=== PATIENT | male | born 1975 | race Hispanic/Latino ===

== ENCOUNTER 2018-10-16 05:16 | Emergency (ER) | payer OTHER ==
[2018-10-16] MEDS ORDERED: DEXAMETHASONE 10 MG/ML VIAL ONE (05:45)
[2018-10-16] MEDS ORDERED: KETOROLAC 30 MG/ML INJ ONE (05:46)
--- NOTE | 2018-10-16 06:06 | ER ---
Nurse's Notes [facility] Name: Pascual Pearson Age: 43 yrs Sex: Male : 1975 Arrival Date: 10/16/2018 Time: 05:19 Bed 18 Private MD: Serina Su H Diagnosis: Low back pain Presentation: 10/16 05:26 Presenting complaint: Patient states: R low back pain since yesterday afternoon which aa1 has progressively gotten worse throughout the next. C/O burning pain 06/12. Transition of care: patient was not received from another setting of care. Onset of symptoms was October 15, 2018. Risk Assessment: Do you want to hurt yourself or someone else? Patient reports no desire to harm self or others. Initial Sepsis Screen: Does the patient meet any 2 criteria? No. Patient's initial sepsis screen is negative. Does the patient have a suspected source of infection? No. Patient's initial sepsis screen is negative. Care prior to arrival: None. 05:26 Method Of Arrival: Ambulatory aa1 05:26 Acuity: EVERT 4 aa1 Triage Assessment: 05:29 General: Appears in no apparent distress. comfortable, Behavior is calm, cooperative, aa1 appropriate for age. Historical: - Allergies: 05:29 No Known Allergies; aa1 - Home Meds: 05:29 metformin 1,000 mg Oral tab 1 tab 2 times per day [Active]; Mobic Oral [Active]; aa1 Glyburide Oral [Active]; Lisinopril Oral [Active]; Metoprolol Tartrate Oral [Active]; Lantus Sub-Q [Active]; - PMHx: 05:29 chronic back pain; Hypertension; Diabetes - IDDM; aa1 - PSHx: 05:29 None; aa1 - Immunization history:: Flu vaccine is up to date. - Social history:: Smoking status: Patient uses tobacco products, smokes one-half pack cigarettes per day. - Ebola Screening: : No symptoms or risks identified at this time. - Family history:: not pertinent. - Hospitalizations: : No recent hospitalization is reported. Screenin:30 Abuse screen: Denies threats or abuse. Nutritional screening: No deficits noted. jb4 Tuberculosis screening: No symptoms or risk factors identified. Fall Risk None identified. Assessment: 05:30 General: Appears in no apparent distress. uncomfortable, Behavior is calm, cooperative, jb4 appropriate for age. Pain: Complains of pain in right low back Pain does not radiate. Pain currently is 9 out of 10 on a pain scale. Quality of pain is described as burning, Pain began Midnight tonight Is continuous, Alleviated by rest, Aggravated by repositioning. Neuro: Level of Consciousness is awake, alert, obeys commands, Oriented to person, place, time, situation. Cardiovascular: Patient's skin is warm and dry. Respiratory: Airway is patent Respiratory effort is even, unlabored, Respiratory pattern is regular, symmetrical. GI: No signs and/or symptoms were reported involving the gastrointestinal system. : No signs and/or symptoms were reported regarding the genitourinary system. EENT: No signs and/or symptoms were reported regarding the EENT system. Derm: Skin is intact, Skin is pink, warm \T\ dry. Musculoskeletal: Circulation, motion, and sensation intact. 06:02 Reassessment: No changes from previously documented assessment. Patient and/or family jb4 updated on plan of care and expected duration. Pain level reassessed. Patient is alert, oriented x 3, equal unlabored respirations, skin warm/dry/pink. Pt reports a decrease in pain from a 9/10 to 4/10 Patient states feeling better. Vital Signs: 05:29 BP 146 / 72; Pulse 84; Resp 18; Temp 99.2; Pulse Ox 96% on R/A; Weight 117.93 kg; aa1 Height 5 ft. 5 in. (165.10 cm); Pain 9/10; 05:29 Body Mass Index 43.27 (117.93 kg, 165.10 cm) aa1 ED Course: 05:19 Patient arrived in ED. es 05:19 Serina Su DO is Private Physician. es 05:23 Bronson Magdaleno MD is Attending Physician. rn 05:27 Triage completed. aa1 05:29 Arm band placed on right wrist. aa1 05:30 Patient has correct armband on for positive identification. Call light in reach. Side jb4 rails up X 1. Pulse ox on. NIBP on. 05:31 Jc Vasquez, KAMERON is Primary Nurse. jb4 06:05 Serina Su DO is Referral Physician. rn 06:12 No provider procedures requiring assistance completed. Patient did not have IV access jb4 during this emergency room visit. Administered Medications: 05:46 Drug: TORadol 30 mg Route: IM; Site: right gluteus; jb4 06:03 Follow up: Response: No adverse reaction; Pain is decreased jb4 05:46 Drug: Decadron 10 mg Route: IM; Site: right gluteus; jb4 06:03 Follow up: Response: No adverse reaction; Pain is decreased jb4 Outcome: 06:05 Discharge ordered by . rn 06:12 Discharged to home ambulatory. jb4 06:12 Condition: stable 06:12 Discharge instructions given to patient, Instructed on discharge instructions, follow up and referral plans. medication usage, Demonstrated understanding of instructions, follow-up care, medications, Prescriptions given X 2. 06:13 Patient left the ED. jb4 Signatures: Jojo Gaston RN RN aa1 Guillermina Marcano Roman, MD MD rn Bryson, James, RN RN jb4
--- NOTE | 2018-10-16 06:06 | EDPHYS ---
Physician Documentation [facility] Name: Pascual Pearson Age: 43 yrs Sex: Male : 1975 Arrival Date: 10/16/2018 Time: 05:19 Bed 18 Private MD: Serina Su H ED Physician Bronson Magdaleno HPI: 10/16 05:57 This 43 yrs old Male presents to ER via Ambulatory with complaints of Low Back rn Pain, with burning sensation. 05:57 The patient presents with pain that is acute. The symptoms are located in the low back. rn The pain does not radiate. Onset: The symptoms/episode began/occurred yesterday. Modifying factors: The patient symptoms are alleviated by remaining still, the patient symptoms are aggravated by any movement, bending. Severity of symptoms: At their worst the symptoms were mild, in the emergency department the symptoms are unchanged. The patient has experienced similar episodes in the past. Reports right lower back pain, began yesterday, worse with movement, noticed it shortly after lifting Chihuahua and laid down, no trauma, no radiation to legs, has had pinched nerves in back before, no abd or chest pain. No fever, no urinary symptoms. No vomiting/diarrhea. Historical: - Allergies: 05:29 No Known Allergies; aa1 - Home Meds: 05:29 metformin 1,000 mg Oral tab 1 tab 2 times per day [Active]; Mobic Oral [Active]; aa1 Glyburide Oral [Active]; Lisinopril Oral [Active]; Metoprolol Tartrate Oral [Active]; Lantus Sub-Q [Active]; - PMHx: 05:29 chronic back pain; Hypertension; Diabetes - IDDM; aa1 - PSHx: 05:29 None; aa1 - Immunization history:: Flu vaccine is up to date. - Social history:: Smoking status: Patient uses tobacco products, smokes one-half pack cigarettes per day. - Ebola Screening: : No symptoms or risks identified at this time. - Family history:: not pertinent. - Hospitalizations: : No recent hospitalization is reported. ROS: 05:57 Constitutional: Negative for fever, chills, and weight loss, Eyes: Negative for injury, rn pain, redness, and discharge, Neck: Negative for injury, pain, and swelling, Cardiovascular: Negative for chest pain, palpitations, and edema, Respiratory: Negative for shortness of breath, cough, wheezing, and pleuritic chest pain, Abdomen/GI: Negative for abdominal pain, nausea, vomiting, diarrhea, and constipation, Back: + low back pain MS/Extremity: Negative for injury and deformity, Skin: Negative for injury, rash, and discoloration, Neuro: Negative for headache, weakness, numbness, tingling, and seizure. Exam: 05:57 Constitutional: This is a well developed, well nourished patient who is awake, alert, rn and in no acute distress. Sitting upright. Abdomen/GI: soft, non-tender Back: No spinal tenderness. No costovertebral tenderness. Reproducible pain with rotation and sitting up. No masses. No skin changes Skin: Warm, dry with normal turgor. Normal color with no rashes, no lesions, and no evidence of cellulitis. MS/ Extremity: Pulses equal, no cyanosis. Neurovascular intact. Full, normal range of motion. Equal circumference. Neuro: Awake and alert, GCS 15, oriented to person, place, time, and situation. Cranial nerves II-XII grossly intact. Motor strength 5/5 in all extremities. Sensory grossly intact. Cerebellar exam normal. Normal gait. Vital Signs: 05:29 BP 146 / 72; Pulse 84; Resp 18; Temp 99.2; Pulse Ox 96% on R/A; Weight 117.93 kg; aa1 Height 5 ft. 5 in. (165.10 cm); Pain 9/10; 05:29 Body Mass Index 43.27 (117.93 kg, 165.10 cm) aa1 MDM: 05:23 Patient medically screened. rn 05:57 Differential diagnosis: arthritis, strain, sciatica, Herniated disc. Data reviewed: rn vital signs, nurses notes, and as a result, I will discharge patient. Counseling: I had a detailed discussion with the patient and/or guardian regarding: the historical points, exam findings, and any diagnostic results supporting the discharge/admit diagnosis, the need for outpatient follow up, to return to the emergency department if symptoms worsen or persist or if there are any questions or concerns that arise at home. Special discussion: I discussed with the patient/guardian in detail that at this point there is no indication for admission to the hospital. It is understood, however, that if the symptoms persist or worsen the patient needs to return immediately for re-evaluation. Administered Medications: 05:46 Drug: TORadol 30 mg Route: IM; Site: right gluteus; jb4 06:03 Follow up: Response: No adverse reaction; Pain is decreased jb4 05:46 Drug: Decadron 10 mg Route: IM; Site: right gluteus; jb4 06:03 Follow up: Response: No adverse reaction; Pain is decreased jb4 Disposition: 10/16/18 06:05 Discharged to Home. Impression: Low back pain. - Condition is Stable. - Discharge Instructions: Back Pain, Adult. - Prescriptions for Cyclobenzaprine 10 mg Oral Tablet - take 1 tablet by ORAL route every 8 hours As needed; 20 tablet. Medrol (Osbaldo) 4 mg Oral Tablets, Dose Pack - take 1 tablet by ORAL route as directed - follow package instructions; 1 packet. - Medication Reconciliation Form, Thank You Letter, Antibiotic Education, Prescription Opioid Use, Work release form form. - Follow up: Serina Su DO; When: As needed; Reason: Recheck today's complaints, Re-evaluation by your physician. - Problem is new. - Symptoms have improved. Signatures: Jojo Gaston RN RN aa1 Bronson Magdaleno MD MD rn Bryson, James, RN RN jb4 Corrections: (The following items were deleted from the chart) 06:13 06:05 10/16/2018 06:05 Discharged to Home. Impression: Low back pain. Condition is jb4 Stable. Forms are Work release form, Medication Reconciliation Form, Thank You Letter, Antibiotic Education, Prescription Opioid Use. Follow up: Serina Su; When: As needed; Reason: Recheck today's complaints, Re-evaluation by your physician. Problem is new. Symptoms have improved. rn
[2018-10-16 06:19] VITALS: BP 146/72; TEMP 99.2; O2SAT 96
== END 2018-10-16 06:13 | disposition home or self-care (01) ==
LOC: ER 05:16
DX: M54.5 Low back pain (principal); I10 Essential (primary) hypertension; E11.9 Type 2 diabetes mellitus without complications; F17.210 Nicotine dependence, cigarettes, uncomplicated
CPT/HCPCS: 96372; 99283; J1100

== ENCOUNTER 2019-04-06 09:10 | Observation (INO) | payer BC, OTHER ==
[2019-04-06 09:50] LABS: Basophils % 0.5 % (0-1.3); Eosinophils % 0.5 % (0-4.4); Hematocrit 50.3 % (39.6-49.0); Lymphocytes % 31.5 % (15.3-44.8); MPV 8.1 fL (7.6-11.3); Monocytes % 8.2 % (3.3-12.3); RBC Red Blood Cell Count 5.41 M/uL (4.33-5.43)
--- NOTE | 2019-04-06 09:59 | ER ---
Nurse's Notes [facility] Name: Pascual Pearson Age: 43 yrs Sex: Male : 1975 Arrival Date: 04/06/2019 Time: 09:12 Bed 7 Private MD: Serina Su H Diagnosis: Chest pain, unspecified;Essential (primary) hypertension;Type 1 diabetes mellitus;Tobacco use;Tobacco abuse counseling;Obesity, unspecified Presentation: 04/06 09:26 Presenting complaint: Patient states: mid abd pain, upper cheat pain, SOB X 2days, also iw states blood sugar has been high. Transition of care: patient was not received from another setting of care. Onset of symptoms was April 04, 2019. Risk Assessment: Do you want to hurt yourself or someone else? Patient reports no desire to harm self or others. Initial Sepsis Screen: Does the patient meet any 2 criteria? No. Patient's initial sepsis screen is negative. Does the patient have a suspected source of infection? No. Patient's initial sepsis screen is negative. Care prior to arrival: None. 09:26 Method Of Arrival: Ambulatory iw 09:26 Acuity: EVERT 3 iw Historical: - Allergies: 09:27 No Known Allergies; iw - Home Meds: 09:45 Clonazepam Oral [Active]; Farxiga Oral [Active]; Glipizide Oral [Active]; Glyburide hb Oral [Active]; Lantus Sub-Q [Active]; lisinopril Oral [Active]; metformin 1,000 mg Oral tab 1 tab 2 times per day [Active]; Metoprolol Tartrate Oral [Active]; Mobic Oral [Active]; Prozac Oral [Active]; - PMHx: 09:29 chronic back pain; Diabetes - IDDM; Hypertension; iw - PSHx: 09:29 None; iw - Immunization history:: Adult Immunizations up to date. - Social history:: Smoking status: Patient uses tobacco products, smokes one-half pack cigarettes per day. - Ebola Screening: : Patient negative for fever greater than or equal to 101.5 degrees Fahrenheit, and additional compatible Ebola Virus Disease symptoms Patient denies exposure to infectious person Patient denies travel to an Ebola-affected area in the 21 days before illness onset No symptoms or risks identified at this time. - Family history:: not pertinent. Screenin:32 Abuse screen: Denies threats or abuse. Denies injuries from another. Nutritional hb screening: No deficits noted. Tuberculosis screening: No symptoms or risk factors identified. Fall Risk None identified. Assessment: 09:32 General: Appears in no apparent distress. uncomfortable, Behavior is calm, cooperative. hb Pain: Pain currently is 7 out of 10 on a pain scale. Neuro: Level of Consciousness is awake, alert, obeys commands, Oriented to person, place, time, situation. Cardiovascular: Reports chest pain, Heart tones S1 S2 present Capillary refill < 3 seconds Patient's skin is warm and dry. Respiratory: Airway is patent Respiratory effort is even, unlabored, Respiratory pattern is regular, symmetrical, Breath sounds are clear bilaterally. GI: Abdomen is obese, Bowel sounds present X 4 quads. Abd is soft and non tender X 4 quads. Reports upper abdominal pain, cramping. : No signs and/or symptoms were reported regarding the genitourinary system. EENT: No signs and/or symptoms were reported regarding the EENT system. Derm: Skin is intact, is healthy with good turgor. Musculoskeletal: 10:30 Reassessment: Patient appears in no apparent distress at this time. Patient and/or hb family updated on plan of care and expected duration. Pain level reassessed. Patient is alert, oriented x 3, equal unlabored respirations, skin warm/dry/pink. 11:30 Reassessment: Patient appears in no apparent distress at this time. Patient and/or hb family updated on plan of care and expected duration. Pain level reassessed. Patient is alert, oriented x 3, equal unlabored respirations, skin warm/dry/pink. 12:30 Reassessment: Patient appears in no apparent distress at this time. No changes from hb previously documented assessment. Patient and/or family updated on plan of care and expected duration. Pain level reassessed. Patient is alert, oriented x 3, equal unlabored respirations, skin warm/dry/pink. 13:15 Reassessment: Patient appears in no apparent distress at this time. No changes from hb previously documented assessment. Patient and/or family updated on plan of care and expected duration. Pain level reassessed. Patient is alert, oriented x 3, equal unlabored respirations, skin warm/dry/pink. Vital Signs: 09:27 BP 158 / 87; Pulse 94; Resp 18 S; Temp 98.6; Pulse Ox 95% on R/A; Weight 117.93 kg; iw Height 5 ft. 5 in. (165.10 cm); Pain 7/10; 10:45 BP 130 / 67; Pulse 71; Resp 15; Pulse Ox 96% ; Pain 2/10; hb 11:45 BP 132 / 68; Pulse 74; Resp 15; Temp 98.1; Pulse Ox 100% on R/A; hb 12:45 BP 136 / 86; Pulse 77; Resp 16; Pulse Ox 100% on R/A; hb 09:27 Body Mass Index 43.27 (117.93 kg, 165.10 cm) iw ED Course: 09:12 Patient arrived in ED. rg4 09:13 Serina Su DO is Private Physician. rg4 09:22 Frankie Back MD is Attending Physician. sybil 09:27 Triage completed. iw 09:27 Arm band placed on. iw 09:30 Patient has correct armband on for positive identification. Placed in gown. Bed in low hb position. Call light in reach. Side rails up X 1. shrimp trawler on. Pulse ox on. NIBP on. 09:34 Initial lab(s) drawn, by me, sent to lab. Inserted saline lock: 20 gauge in right dh3 forearm, using aseptic technique. Blood collected. 09:41 Zeynep Phillips, RN is Primary Nurse. hb 09:58 Familia Grady MD is Hospitalizing Provider. sybil 10:01 XRAY Chest (1 view) In Process Unspecified. EDMS 13:27 No provider procedures requiring assistance completed. Patient admitted, IV remains in aj place. intact. Administered Medications: 09:56 Drug: morphine 4 mg Route: IVP; Site: right wrist; hb 10:30 Follow up: Response: No adverse reaction; Pain is decreased hb 09:56 Drug: Zofran 4 mg Route: IVP; Site: right wrist; hb 10:30 Follow up: Response: No adverse reaction hb 09:56 Drug: Lopressor (metoprolol TARTRATE) 50 mg Route: PO; hb 10:45 Follow up: Response: No adverse reaction hb 09:57 Drug: NS 0.9% 1000 ml Route: IV; Rate: 125 ml/hr; Site: right wrist; hb 13:15 Follow up: Response: No adverse reaction; IV Status: Infusion continued upon admission; hb IV Intake: 400ml 09:57 Drug: Aspirin 162 mg Route: PO; hb 10:45 Follow up: Response: No adverse reaction hb 09:57 Drug: Pepcid 20 mg Route: IVP; Site: right wrist; hb 10:30 Follow up: Response: No adverse reaction; Pain is decreased hb Intake: 13:15 IV: 400ml; Total: 400ml. hb Outcome: 09:59 Decision to Hospitalize by Provider. sybil 13:27 Admitted to Tele accompanied by tech, via wheelchair, room 221, with chart, Report aj called to Ashley 13:27 Condition: good 13:27 Instructed on the need for admit. 13:29 Patient left the ED. kristan Signatures: Dispatcher [employer] Theresa Clark RN RN aj Anderson, Corey, MD MD cha Williams, Irene, RN RN iw Baxter, Heather, RN RN hb Garcia, Rubi 4 Anita Cisneros 3 Corrections: (The following items were deleted from the chart) 09:28 09:27 BP 139 / 96; Pulse 74bpm; Resp 16bpm; Pulse Ox 100% RA; Temp 98.6F; 81.65 kg; iw Height 5 ft. 7 in.; BMI: 28.1; Pain 7/10; iw
--- NOTE | 2019-04-06 09:59 | EDPHYS ---
Physician Documentation [facility] Name: Pascual Pearson Age: 43 yrs Sex: Male : 1975 Arrival Date: 04/06/2019 Time: 09:12 Bed 7 Private MD: Serina Su H ED Physician Frankie Back HPI: 04/06 09:54 This 43 yrs old Male presents to ER via Ambulatory with complaints of sybil Abdominal Pain, Chest Pain. 09:54 The patient or guardian reports chest pain that is located primarily in the anterior sybil chest wall, bilaterally. Onset: 2 day(s) ago. The pain does not radiate. Associated signs and symptoms: Pertinent positives: shortness of breath. The chest pain is described as squeezing. Modifying factors: The symptoms are alleviated by rest, the symptoms are aggravated by exertion. Severity of pain: At its worst the pain was mild moderate in the emergency department the pain has improved moderately. The patient has not experienced similar symptoms in the past. Historical: - Allergies: 09:27 No Known Allergies; iw - Home Meds: 09:45 Clonazepam Oral [Active]; Farxiga Oral [Active]; Glipizide Oral [Active]; Glyburide hb Oral [Active]; Lantus Sub-Q [Active]; lisinopril Oral [Active]; metformin 1,000 mg Oral tab 1 tab 2 times per day [Active]; Metoprolol Tartrate Oral [Active]; Mobic Oral [Active]; Prozac Oral [Active]; - PMHx: 09:29 chronic back pain; Diabetes - IDDM; Hypertension; iw - PSHx: 09:29 None; iw - Immunization history:: Adult Immunizations up to date. - Social history:: Smoking status: Patient uses tobacco products, smokes one-half pack cigarettes per day. - Ebola Screening: : Patient negative for fever greater than or equal to 101.5 degrees Fahrenheit, and additional compatible Ebola Virus Disease symptoms Patient denies exposure to infectious person Patient denies travel to an Ebola-affected area in the 21 days before illness onset No symptoms or risks identified at this time. - Family history:: not pertinent. ROS: 09:54 Constitutional: Negative for fever, chills, and weight loss, Eyes: Negative for injury, sybil pain, redness, and discharge, ENT: Negative for injury, pain, and discharge, Neck: Negative for injury, pain, and swelling, Respiratory: Negative for shortness of breath, cough, wheezing, and pleuritic chest pain, Back: Negative for injury and pain, : Negative for injury, bleeding, discharge, and swelling, MS/Extremity: Negative for injury and deformity, Skin: Negative for injury, rash, and discoloration, Neuro: Negative for headache, weakness, numbness, tingling, and seizure, Psych: Negative for depression, anxiety, suicide ideation, homicidal ideation, and hallucinations, Allergy/Immunology: Negative for hives, rash, and allergies, Endocrine: Negative for neck swelling, polydipsia, polyuria, polyphagia, and marked weight changes, Hematologic/Lymphatic: Negative for swollen nodes, abnormal bleeding, and unusual bruising. 09:54 Cardiovascular: Positive for chest pain. 09:54 Abdomen/GI: Positive for abdominal pain, of the right lower quadrant and left lower quadrant. Exam: 09:54 Constitutional: This is a well developed, well nourished patient who is awake, alert, sybil and in no acute distress. Head/Face: Normocephalic, atraumatic. Eyes: Pupils equal round and reactive to light, extra-ocular motions intact. Lids and lashes normal. Conjunctiva and sclera are non-icteric and not injected. Cornea within normal limits. Periorbital areas with no swelling, redness, or edema. ENT: Nares patent. No nasal discharge, no septal abnormalities noted. Tympanic membranes are normal and external auditory canals are clear. Oropharynx with no redness, swelling, or masses, exudates, or evidence of obstruction, uvula midline. Mucous membranes moist. Neck: Trachea midline, no thyromegaly or masses palpated, and no cervical lymphadenopathy. Supple, full range of motion without nuchal rigidity, or vertebral point tenderness. No Meningismus. Chest/axilla: Normal chest wall appearance and motion. Nontender with no deformity. No lesions are appreciated. Cardiovascular: Regular rate and rhythm with a normal S1 and S2. No gallops, murmurs, or rubs. Normal PMI, no JVD. No pulse deficits. Respiratory: Lungs have equal breath sounds bilaterally, clear to auscultation and percussion. No rales, rhonchi or wheezes noted. No increased work of breathing, no retractions or nasal flaring. Back: No spinal tenderness. No costovertebral tenderness. Full range of motion. Male : Normal genitalia with no discharge or lesions. Skin: Warm, dry with normal turgor. Normal color with no rashes, no lesions, and no evidence of cellulitis. MS/ Extremity: Pulses equal, no cyanosis. Neurovascular intact. Full, normal range of motion. Neuro: Awake and alert, GCS 15, oriented to person, place, time, and situation. Cranial nerves II-XII grossly intact. Motor strength 5/5 in all extremities. Sensory grossly intact. Cerebellar exam normal. Normal gait. Psych: Awake, alert, with orientation to person, place and time. Behavior, mood, and affect are within normal limits. 09:54 Abdomen/GI: Inspection: abdomen appears normal, Bowel sounds: normal, Palpation: abdomen is soft and non-tender, Liver: no appreciated palpable abnormalities, Hernia: not appreciated. 09:57 Musculoskeletal/extremity: DVT Exam: No signs of deep vein thrombosis. no pain, no sybil swelling, no tenderness, negative Homans' sign noted on exam, no appreciated bluish discoloration, no erythema, no increased warmth. Vital Signs: 09:27 BP 158 / 87; Pulse 94; Resp 18 S; Temp 98.6; Pulse Ox 95% on R/A; Weight 117.93 kg; iw Height 5 ft. 5 in. (165.10 cm); Pain 7/10; 10:45 BP 130 / 67; Pulse 71; Resp 15; Pulse Ox 96% ; Pain 2/10; hb 11:45 BP 132 / 68; Pulse 74; Resp 15; Temp 98.1; Pulse Ox 100% on R/A; hb 12:45 BP 136 / 86; Pulse 77; Resp 16; Pulse Ox 100% on R/A; hb 09:27 Body Mass Index 43.27 (117.93 kg, 165.10 cm) iw MDM: 09:22 Patient medically screened. [facility] 09:56 Data reviewed: vital signs, nurses notes, lab test result(s), EKG, radiologic studies, [facility] plain films. 04/06 09:23 Order name: Basic Metabolic Panel; Complete Time: 10:30 [facility] 04/06 09:23 Order name: CBC with Diff; Complete Time: 10:30 [facility] 04/06 09:23 Order name: LFT's; Complete Time: 10:30 sybil 04/06 09:23 Order name: Magnesium; Complete Time: 10:30 sybil 04/06 09:23 Order name: NT PRO-BNP; Complete Time: 10:30 sybil 04/06 09:23 Order name: PT-INR; Complete Time: 10:30 sybil 04/06 09:23 Order name: Troponin (emerg Dept Use Only); Complete Time: 10:30 [facility] 04/06 09:23 Order name: Lipase; Complete Time: 10:30 [facility] 04/06 09:23 Order name: Urine Culture [facility] 04/06 09:33 Order name: Glucose, Ancillary Testing; Complete Time: 09:35 EDMT 04/06 09:40 Order name: D-Dimer; Complete Time: 10:30 EDMT 04/06 11:29 Order name: Basic Metabolic Panel EDMT 04/06 11:29 Order name: CBC with Automated Diff EDMT 04/06 09:23 Order name: XRAY Chest (1 view); Complete Time: 10:30 [facility] 04/06 09:23 Order name: EKG; Complete Time: 09:25 [facility] 04/06 11:29 Order name: CONS Physician Consult EDMT 04/06 11:29 Order name: Echo with Doppler EDMT 04/06 11:30 Order name: Lipid Profile EDMT 04/06 11:30 Order name: Lipid Profile EDMT 04/06 11:30 Order name: Troponin I EDMT 04/06 11:30 Order name: Troponin I EDMT 04/06 11:30 Order name: Troponin I EDMT 04/06 11:30 Order name: Troponin I EDMT 04/06 09:23 Order name: Cardiac monitoring; Complete Time: 09:34 sybil 04/06 09:23 Order name: EKG - Nurse/Tech; Complete Time: 09:34 sybil 04/06 09:23 Order name: IV Saline Lock; Complete Time: 09:34 sybil 04/06 09:23 Order name: Labs collected and sent; Complete Time: 09:34 sybil 04/06 09:23 Order name: O2 Per Protocol; Complete Time: 09:34 sybil 04/06 09:23 Order name: O2 Sat Monitoring; Complete Time: 09:34 sybil 04/06 11:29 Order name: EKG Electrocardiogram EDMS Administered Medications: 09:56 Drug: morphine 4 mg Route: IVP; Site: right wrist; hb 10:30 Follow up: Response: No adverse reaction; Pain is decreased hb 09:56 Drug: Zofran 4 mg Route: IVP; Site: right wrist; hb 10:30 Follow up: Response: No adverse reaction hb 09:56 Drug: Lopressor (metoprolol TARTRATE) 50 mg Route: PO; hb 10:45 Follow up: Response: No adverse reaction hb 09:57 Drug: NS 0.9% 1000 ml Route: IV; Rate: 125 ml/hr; Site: right wrist; hb 13:15 Follow up: Response: No adverse reaction; IV Status: Infusion continued upon admission; hb IV Intake: 400ml 09:57 Drug: Aspirin 162 mg Route: PO; hb 10:45 Follow up: Response: No adverse reaction hb 09:57 Drug: Pepcid 20 mg Route: IVP; Site: right wrist; hb 10:30 Follow up: Response: No adverse reaction; Pain is decreased hb Disposition: 04/06/19 09:59 Hospitalization ordered by Familia Grady for Observation. Preliminary diagnosis are Chest pain, unspecified, Essential (primary) hypertension, Type 1 diabetes mellitus, Tobacco use, Tobacco abuse counseling, Obesity, unspecified. - Bed requested for Telemetry/MedSurg (observation). - Status is Observation. aj - Condition is Fair. - Problem is new. - Symptoms have improved. UTI on Admission? No Signatures: Dispatcher [employer] [facility] Lisa Ireland RN RN dw Myers, Amanda, RN RN aj Anderson, Corey, MD MD cha Williams, Irene, RN RN iw Baxter, Heather, RN RN hb Corrections: (The following items were deleted from the chart) 09:39 09:36 D-[id number] ordered. [facility] EDMT 11:45 09:59 Hospitalization Ordered by Familia Grady MD for Observation. Preliminary diagnosis is Chest pain, unspecified; Essential (primary) hypertension; Type 1 diabetes mellitus; Tobacco use; Tobacco abuse counseling; Obesity, unspecified. Bed requested for Telemetry/MedSurg (observation). Status is Observation. Condition is Fair. Problem is new. Symptoms have improved. UTI on Admission? No. sybil 13:29 11:45 04/06/2019 09:59 Hospitalization Ordered by Familia Grady MD for Observation. aj Preliminary diagnosis is Chest pain, unspecified; Essential (primary) hypertension; Type 1 diabetes mellitus; Tobacco use; Tobacco abuse counseling; Obesity, unspecified. Bed requested for Telemetry/MedSurg (observation). Status is Observation. Condition is Fair. Problem is new. Symptoms have improved. UTI on Admission? No. dw
[2019-04-06] MEDS ORDERED: ASPIRIN 81 MG CHEWABLE TABLET ONE (10:02)
[2019-04-06] MEDS ORDERED: METOPROLOL TAR 50 MG TAB ONE (10:02)
[2019-04-06] MEDS ORDERED: FAMOTIDINE 20 MG/2 ML VIAL IV ONE (10:03)
[2019-04-06] MEDS ORDERED: NA CHLORIDE 0.9% 1,000 ML ONE (10:03)
[2019-04-06] MEDS ORDERED: MORPHINE 4 MG/ML SYR ONE (10:03)
[2019-04-06] MEDS ORDERED: ONDANSETRON 4 MG/2 ML VIAL ONE (10:03)
[2019-04-06 10:08] LABS: ALT/SGPT 36 U/L (12-78); AST/SGOT 14 U/L (15-37); Albumin 3.9 g/dL (3.4-5.0); Alkaline Phosphatase 92 U/L (45-117); BUN Blood Urea Nitrogen 8 mg/dL (7-18); Bicarbonate 26 mmol/L (21-32); Bilirubin Direct 0.1 mg/dL (0-0.2); Bilirubin Total 0.7 mg/dL (0.2-1.0); Glucose Level 223 mg/dL (74-106); Lipase 147 U/L (73-393); Magnesium 2.1 mg/dL (1.8-2.4); NT PRO-BNP 66 pg/mL (<125); Protein, Total 8.1 g/dL (6.4-8.2); Protime INR 0.95; Sodium Level 138 mmol/L (136-145); Troponin (Emerg Dept Use Only) < 0.02 ng/mL (0.0-0.045)
--- NOTE | 2019-04-06 10:18 | RAD REPORT ---
EXAM DESCRIPTION: Oswald Single View04/06/2019 10:02 am CLINICAL HISTORY: Chest pain COMPARISON: July 2018 FINDINGS: The lungs appear clear of acute infiltrate. The heart is normal size IMPRESSION: No acute abnormalities displayed
[2019-04-06] MEDS ORDERED: NITROGLYCERIN 0.4 MG/TAB SL PRN (11:04)
[2019-04-06] MEDS ORDERED: MORPHINE 4 MG/ML SYR IV PRN (11:04)
--- NOTE | 2019-04-06 11:11 | P.HP ---
Certification for Inpatient With expected LOS: <2 Midnights Practitioner: I am a practitioner with admitting privileges, knowledge of patient current condition, hospital course, and medical plan of care. Services: Services provided to patient in accordance with Admission requirements found in Title 42 Section 412.3 of the Code of Federal Regulations Patient History Date of Service: 04/07/19 Reason for admission: Chest pain History of Present Illness: Patient is 43 years of age started complaining of chest pain and today worse with anxiety has some shortness of breath. No cough sputum hemoptysis no prior history of coronary artery disease patient is a diabetic states that his chest pain is worse with anxiety no radiation to the arms or neck history of sleep apnea does not use a CPAP machine complain of loud snoring excessive daytime somnolence smokes 1 pack every 2 days Allergies No Known Allergies Allergy (Verified 08/01/16 00:57) Home Medications: Fluoxetine HCl [Prozac] 20 mg PO DAILY 04/06/19 Insulin 70/30 NPH/Reg Human [Novolin 70/30*] 40 unit SQ TID 04/06/19 Lisinopril [Prinivil*] 5 mg PO DAILY 04/06/19 Meloxicam [Mobic] 15 mg PO DAILY 04/06/19 Metformin ER [Glucophage ER*] 1,000 mg PO BID 04/06/19 Metoprolol Tartrate [Lopressor*] 25 mg PO DAILY 04/06/19 Fluticasone/Salmeterol [Advair 250-50 Diskus] 1 each IH BID #1 blst.w.dev - Past Medical/Surgical History Diabetic: Yes -: depression -: anxiety -: sleep apnea -: curved spine -: chronic back pain -: hypertension -: tonsillectomy -: steriod injections to back yearly - Social History Alcohol use: No CD- Drugs: Yes Caffeine use: Yes Review of Systems 10-point ROS is otherwise unremarkable General: Weakness Respiratory: Shortness of Breath Cardiovascular: Chest Pain Physical Examination - Physical Exam General: Alert, Oriented x3 HEENT: Atraumatic Respiratory: Clear to auscultation bilaterally, Diminished Cardiovascular: No edema, Regular rate/rhythm Capillary refill: >2 Seconds Gastrointestinal: Soft and benign Musculoskeletal: No clubbing, No swelling, No contractures Integumentary: No rashes, No breakdown, No significant lesion - Studies Laboratory Data (last 24 hrs) 04/06/19 09:30: PT 11.2, INR 0.95 04/06/19 09:30: WBC 9.7, Hgb 16.7, Hct 50.3 H, Plt Count 242 04/06/19 09:30: Sodium 138, Potassium 4.0, BUN 8, Creatinine 0.80, Glucose 223 H , Magnesium 2.1, Total Bilirubin 0.7, AST 14 L, ALT 36, Alkaline Phosphatase 92 , Lipase 147 Assessment and Plan - Problems (Diagnosis) (1) Chest pain Current Visit: Yes Status: Acute Plan: Patient is 43 years of age admitted with chest pain he is a heavy smoker high risk for sleep apnea in addition he is diabetic troponin is so far negative EKGs pending chest x-ray clear admit for rule out AL Qualifiers: Chest pain type: unspecified Qualified Code(s): R07.9 - Chest pain, unspecified (2) COPD (chronic obstructive pulmonary disease) Current Visit: Yes Status: Acute Plan: He probably has underlying COPD heavy smoker complaining of shortness of breath on exertion will at some bronchodilators Qualifiers: COPD type: COPD with acute exacerbation Qualified Code(s): J44.1 - Chronic obstructive pulmonary disease with (acute) exacerbation (3) Sleep apnea Current Visit: Yes Status: Acute Plan: Patient high risk complaining of loud snoring excessive daytime somnolence the lead a sleep study as an outpatient Qualifiers: Sleep apnea type: unspecified type Qualified Code(s): G47.30 - Sleep apnea , unspecified - Advance Directives Does patient have a Living Will: No Does patient have a Durable POA for Healthcare: No
[2019-04-06] MEDS ORDERED: MORPHINE 2 MG/ML SYR IV PRN (11:12)
[2019-04-06] MEDS: METOPROLOL TARTRATE 5 MG/5 ML INJ IV SCH ×6 (12:00→16:10)
[2019-04-06] MEDS: ARFORMOTEROL TARTRATE 15 MCG/2 ML VIAL.NEB NEB SCH ×2 (13:41→20:10)
[2019-04-06 14:35] LABS: Absolute Lymphocytes (CBC) 4.2 K/uL (0.7-4.9); Basophils % 0.4 % (0-1.3); Eosinophils % 1.4 % (0-4.4); Hematocrit 50.5 % (39.6-49.0); Lymphocytes % 46.2 % (15.3-44.8); MPV 8.3 fL (7.6-11.3); Monocytes % 7.6 % (3.3-12.3); RBC Red Blood Cell Count 5.42 M/uL (4.33-5.43)
[2019-04-06 14:53] LABS: BUN Blood Urea Nitrogen 9 mg/dL (7-18); Bicarbonate 30 mmol/L (21-32); Glucose Level 220 mg/dL (74-106); Potassium 4.2 mmol/L (3.5-5.1); Sodium Level 139 mmol/L (136-145)
[2019-04-06] MEDS: Enoxaparin 120 MG/0.8 ML SYR SQ SCH ×2 (15:31→20:08)
[2019-04-06 15:42] VITALS: BMI 43.2
[2019-04-06] MEDS ORDERED: D50W 25 GM/50 ML SYRINGE IV PRN (15:55)
[2019-04-06] MEDS ORDERED: GLUCAGON 1 MG/VIAL IM PRN (15:55)
[2019-04-06] MEDS: INSULIN -REGULAR HUMAN 50 UNIT/0.5 ML ML SQ SCH ×2 (16:35→21:17)
--- NOTE | 2019-04-06 16:43 | EKG ---
Test Date: 2019-04-06 Test Time: 09:25:59 Fine Wire Drawer: HB MEASUREMENT RESULTS: Intervals: Rate: 89 TX: 168 QRSD: 94 QT: 360 QTc: 438 Nickerson: P: 67 TX: 168 QRS: 43 T: 38 INTERPRETIVE STATEMENTS: Normal sinus rhythm Normal ECG Compared to ECG 08/01/2016 00:21:03 Sinus tachycardia no longer present Electronically Signed On 04-06-19 16:41:48 CDT by Julio Mccall
[2019-04-06 19:24] LABS: Urine Appearance CLEAR; Urine Bilirubin NEGATIVE (NEG); Urine Blood NEGATIVE (NEG); Urine Color YELLOW; Urine Glucose 3+ (NEG); Urine Protein NEGATIVE (NEG); Urine Specific Gravity >=1.030 (1.005-1.030); Urine Urobilinogen 0.2 mg/dL (0.2-1.0)
[2019-04-06 19:25] LABS: Urine Microscopic Reflex NO UMIC
--- NOTE | 2019-04-06 22:10 | CON ---
Date of Consultation: 04/06/2019 Reason For Consultation: Chest pain. History Of Present Illness: Mr. Pearson is a 43-year-old male with multiple medical problems including diabetes, hypertension, anxiety, depression, gastroesophageal reflux disease, dys lipidemia, and chronic back pain. He came in with substernal chest pressure that is squeezing in kaycee ure without any radiation. It lasted about 15 to 20 minutes. He stated that he has similar episode when he gets anxious. This was not exertional. No radiation. Denied any PND, orthopnea, pedal kay a, palpitations or syncope. By the time I saw him, he has already ruled out with a normal troponin, normal EKG, normal x-ray. Past Medical History: As stated above. Allergies: NONE. Review of Systems: Negative. Social History: Negative. Family History: Noncontributory. Medications: Include insulin, Prinivil, Prozac, clonazepam, Mobic, metformin and metoprolol. Physical Examination: Vital Signs: He weighed 260 pounds. Stable. He was afebrile. HEENT: Negative. Neck: Supple with no bruit, lymphadenopathy, JVD, or thyromegaly. Chest: Clear to auscultation and percussion. Cardiac: Revealed a regular rhythm and rate. No murmurs, gallops, or rubs. Abdomen: Benign. Extremities: Revealed no clubbing, cyanosis, or edema. Diagnostic Data: All within normal limits. His lipid profile was abnormal with a cholesterol of 232 , LDL of 156. Impression And Plan: Atypical chest pain, possibly anxiety although the patient had many risk factor s for heart disease. I think a stress test as an outpatient is reasonable. He had already had an ec hocardiogram that was normal. His EKG and chest x-ray are normal. His troponin is negative. I thin k he can go home. I would add statin to his regimen. His cholesterol is 232 and his LDL is 156, and he is a diabetic without statin. I will discuss the case further with Dr. Dior. His other probl ems including hypertension, anxiety, diabetes and chronic back pain seem to be stable at this point. From my standpoint, he can go home and I will set him up for an outpatient stress test. SHILPI/DORINA Voice ID: [id number] Report ID: [id number]
[2019-04-07] MEDS: Enoxaparin 120 MG/0.8 ML SYR SQ SCH (07:49)
[2019-04-07] MEDS: INSULIN -REGULAR HUMAN 50 UNIT/0.5 ML ML SQ SCH ×2 (07:50→11:54)
[2019-04-07] MEDS: ARFORMOTEROL TARTRATE 15 MCG/2 ML VIAL.NEB NEB SCH (08:30)
[2019-04-07] MEDS ORDERED: ASPIRIN EC 81 MG TAB PO SCH (09:00)
--- NOTE | 2019-04-07 10:54 | P.DS ---
Admission Date: 04/06/19 (Hospitalist) Discharge Date: 04/07/19 Disposition: ROUTINE DISCHARGE Discharge Condition: FAIR Reason for Admission: Chest pain - Problems (1) Chest pain Current Visit: Yes Status: Acute Qualifiers: Chest pain type: unspecified Qualified Code(s): R07.9 - Chest pain, unspecified (2) COPD (chronic obstructive pulmonary disease) Current Visit: Yes Status: Acute Qualifiers: COPD type: COPD with acute exacerbation Qualified Code(s): J44.1 - Chronic obstructive pulmonary disease with (acute) exacerbation (3) Sleep apnea Current Visit: Yes Status: Acute Qualifiers: Sleep apnea type: unspecified type Qualified Code(s): G47.30 - Sleep apnea , unspecified Brief History of Present Illness: Patient is 43 years of age started complaining of chest pain and today worse with anxiety has some shortness of breath. No cough sputum hemoptysis no prior history of coronary artery disease patient is a diabetic states that his chest pain is worse with anxiety no radiation to the arms or neck history of sleep apnea does not use a CPAP machine complain of loud snoring excessive daytime somnolence smokes 1 pack every 2 days Hospital Course: Patient was admitted with shortness of breath chest pain which resolved there is no clinical evidence of myocardial infarction negative troponin normal EKG at the time of discharge patient was doing better asymptomatic shortness of breath had improved no chest pain hemodynamically stays stable seen by Cardiology patient to have an outpatient stress test He also has presume COPD console not to smoke also to avoid taking any sleeping medications at night he is high risk for sleep apnea and will need to follow up with me for outpatient pulmonary function testing and a sleep study patient also has hyperlipidemia Crestor faxed Vital Signs/Physical Exam: Temp Pulse Resp BP Pulse Ox 96.8 F 72 19 140/71 98 04/07/19 07:46 04/07/19 07:46 04/07/19 07:46 04/07/19 07:46 04/07/19 07:46 Laboratory Data at Discharge: WBC 9.0 K/uL (4.3-10.9) 04/06/19 14:22 Hgb 16.5 g/dL (13.6-17.9) 04/06/19 14:22 Hct 50.5 % (39.6-49.0) H 04/06/19 14:22 Plt Count 249 K/uL (152-406) 04/06/19 14:22 PT 11.2 SECONDS (9.5-12.5) 04/06/19 09:30 INR 0.95 04/06/19 09:30 Sodium 139 mmol/L (136-145) 04/06/19 14:22 Potassium 4.2 mmol/L (3.5-5.1) 04/06/19 14:22 BUN 9 mg/dL (7-18) 04/06/19 14:22 Creatinine 0.85 mg/dL (0.55-1.3) 04/06/19 14:22 Glucose 220 mg/dL (74-106) H 04/06/19 14:22 Magnesium 2.1 mg/dL (1.8-2.4) 04/06/19 09:30 Total Bilirubin 0.7 mg/dL (0.2-1.0) 04/06/19 09:30 AST 14 U/L (15-37) L 04/06/19 09:30 ALT 36 U/L (12-78) 04/06/19 09:30 Alkaline Phosphatase 92 U/L (45-117) 04/06/19 09:30 Troponin I < 0.02 ng/mL (0.0-0.045) 04/07/19 05:14 Triglycerides 187 mg/dL (<150) H 04/06/19 14:22 Cholesterol 232 mg/dL (<200) H 04/06/19 14:22 HDL Cholesterol 39 mg/dL (40-60) L 04/06/19 14:22 Cholesterol/HDL Ratio 5.95 04/06/19 14:22 Lipase 147 U/L (73-393) 04/06/19 09:30 Home Medications: Fluoxetine HCl [Prozac] 20 mg PO DAILY 04/06/19 Insulin 70/30 NPH/Reg Human [Novolin 70/30*] 40 unit SQ TID 04/06/19 Lisinopril [Prinivil*] 5 mg PO DAILY 04/06/19 Meloxicam [Mobic] 15 mg PO DAILY 04/06/19 Metformin ER [Glucophage ER*] 1,000 mg PO BID 04/06/19 Metoprolol Tartrate [Lopressor*] 25 mg PO DAILY 04/06/19 Fluticasone/Salmeterol [Advair 250-50 Diskus] 1 each IH BID #1 blst.w.dev Rosuvastatin Calcium [Crestor] 10 mg PO DAILY #30 tablet 04/07/19 New Medications: Fluticasone/Salmeterol [Advair 250-50 Diskus] 1 each IH BID #1 blst.w.dev Patient Discharge Instructions: I have faxed in a prescription for Advair to take 1 puff twice a day patient to stop taking his clonazepam as this will aggravate her underlying sleep apnea to follow up with me in 1 or 2 weeks patient to schedule a follow up with cardiology for possible cardiac catheterization Diet: ADA Followup: Familia Grady MD [ACTIVE - CAN ADMIT] - Julio Mccall MD [ACTIVE - CAN ADMIT] -
[2019-04-07 12:02] VITALS: O2SAT 95
[2019-04-07 12:22] VITALS: BP 132/71; TEMP 98.2
--- NOTE | 2019-04-09 12:35 | ECHO ---
HEIGHT: 5 ft 5 in WEIGHT: 260 lb 1.6 oz DATE OF STUDY: 04/06/[address]: Familia Grady MD 2-DIMENSIONAL: YES M.MODE: YES DOPPLER: YES COLOR FLOW: YES TDS: NO PORTABLE: NO DEFINITY: NO BUBBLE STUDY: NO DIAGNOSIS: CHEST PAIN CARDIAC HISTORY: CATHERIZATION: NO SURGERY: NO PROSTHETIC VALVE: NO PACEMAKER: NO MEASUREMENTS (cm) DIASTOLIC (NORMALS) SYSTOLIC (NORMALS) IVSd 1.3 (0.6-1.2) LA Diam 4.0 (1.9-4.0) LVEF 58% LVIDd 3.6 (3.5-5.7) LVIDs 2.5 (2.0-3.5) %FS 30% LVPWd 1.2 (0.6-1.2) Ao Diam 2.8 (2.0-3.7) 2 DIMENSIONAL ASSESSMENT: RIGHT ATRIUM: NORMAL LEFT ATRIUM: NORMAL RIGHT VENTRICLE: NORMAL LEFT VENTRICLE: NORMAL TRICUSPID VALVE: NORMAL MITRAL VALVE: NORMAL PULMONIC VALVE: NORMAL AORTIC VALVE: NORMAL PERICARDIAL EFFUSION: NONE AORTIC ROOT: NORMAL LEFT VENTRICULAR WALL MOTION: NORMAL DOPPLER/COLOR FLOW: NORMAL COMMENTS: NORMAL 2D ECHOCARDIOGRAM WITH DOPPLER. NO WALL MOTION ABNORMALITY. NO EFFUSION. TECHNOLOGIST: Favian [employer]
== END 2019-04-07 13:20 | disposition home or self-care (01) ==
LOC: ER 09:10 → SUPCPDRO 09:10 → ERHOLD 11:45 → 2ND 12:30 → 4TH 21:54
PROVIDERS: ADMIT Internal Medicine Sleep Medicine; ATTEND Internal Medicine Sleep Medicine
DX: R07.9 Chest pain, unspecified (principal); G47.30 Sleep apnea, unspecified; E11.9 Type 2 diabetes mellitus without complications; I10 Essential (primary) hypertension; F41.8 Other specified anxiety disorders; K21.9 Gastro-esophageal reflux disease without esophagitis; E78.5 Hyperlipidemia, unspecified; F17.210 Nicotine dependence, cigarettes, uncomplicated
CPT/HCPCS: 36415; 71045; 80048; 80061; 80076; 81003; 82962; 83690; 83735; 83880; 84484; 85025; 85379; 85610; 87077; 87086; 87088; 87186; 93005; 93306; 94640; 96361; 96374; 96375; 99285; G0378; J1650; J2270; J2405; J7030; J7605

== ENCOUNTER 2019-04-14 09:18 | Emergency (ER) | payer BC ==
[2019-04-14 09:59] LABS: Absolute Lymphocytes (CBC) 3.4 K/uL (0.7-4.9); Basophils % 0.8 % (0-1.3); Eosinophils % 0.3 % (0-4.4); Hematocrit 51.2 % (39.6-49.0); Lymphocytes % 35.2 % (15.3-44.8); MPV 8.3 fL (7.6-11.3); Monocytes % 6.8 % (3.3-12.3); RBC Red Blood Cell Count 5.57 M/uL (4.33-5.43)
[2019-04-14 10:17] LABS: BUN Blood Urea Nitrogen 8 mg/dL (7-18); Bicarbonate 26 mmol/L (21-32); Glucose Level 204 mg/dL (74-106); Lipase 137 U/L (73-393); NT PRO-BNP 110 pg/mL (<125); Potassium 4.4 mmol/L (3.5-5.1); Sodium Level 135 mmol/L (136-145); Troponin (Emerg Dept Use Only) < 0.02 ng/mL (0.0-0.045)
--- NOTE | 2019-04-14 10:35 | ER ---
Nurse's Notes [facility] Name: Pascual Pearson Age: 43 yrs Sex: Male : 1975 Arrival Date: 04/14/2019 Time: 09:19 Bed 6 Private MD: Diagnosis: Chest pain, unspecified Presentation: 04/14 09:28 Presenting complaint: Patient states: this morning felt sharp pain in middle of chest, iw radiates across chest, feels tight, feels like anxiety, was admitted to hospital last week, was supposed to have stress test but has not been able to come up with the money, also has SOB on exertion. Transition of care: patient was not received from another setting of care. Onset of symptoms was April 14, 2019. Risk Assessment: Do you want to hurt yourself or someone else? Patient reports no desire to harm self or others. Initial Sepsis Screen:. 09:28 Method Of Arrival: Ambulatory iw 09:28 Acuity: EVERT 3 iw 09:29 Presenting complaint: Patient states: i started having chest pain this morning about 7 tw2 i thought it was indigestion, took some nexium it didn't help. Transition of care: patient was not received from another setting of care. Onset of symptoms was April 14, 2019. Risk Assessment: Do you want to hurt yourself or someone else? Patient reports no desire to harm self or others. Initial Sepsis Screen: Does the patient meet any 2 criteria? No. Patient's initial sepsis screen is negative. Does the patient have a suspected source of infection? No. Patient's initial sepsis screen is negative. Care prior to arrival: None. 09:29 Method Of Arrival: Ambulatory tw2 09:29 Acuity: EVERT 3 tw2 Triage Assessment: :29 General: Appears in no apparent distress. obese, Behavior is calm, cooperative, tw2 appropriate for age. Pain: Complains of pain in chest. Cardiovascular: Heart tones S1 S2 Patient's skin is warm and dry. Rhythm is sinus rhythm. Historical: - Allergies: 09:58 No Known Allergies; tw2 10:00 No Known Allergies; iw - Home Meds: :58 Clonazepam Oral [Active]; Farxiga Oral [Active]; Glipizide Oral [Active]; metformin tw2 1,000 mg Oral tab 1 tab 2 times per day [Active]; Metoprolol Tartrate Oral [Active]; Mobic Oral [Active]; Lantus Sub-Q [Active]; Prozac Oral [Active]; Glyburide Oral [Active]; lisinopril Oral [Active]; - PMHx: 09:58 Diabetes - IDDM; chronic back pain; Hypertension; tw2 - PSHx: 09:58 None; tw2 - Immunization history:: Adult Immunizations. - Family history:: not pertinent. - Social history:: Smoking status: Patient uses tobacco products, smokes one-half pack cigarettes per day. - Ebola Screening: : Patient denies travel to an Ebola-affected area in the 21 days before illness onset Patient negative for fever greater than or equal to 101.5 degrees Fahrenheit, and additional compatible Ebola Virus Disease symptoms Patient denies exposure to infectious person Patient denies travel to an Ebola-affected area in the 21 days before illness onset No symptoms or risks identified at this time. - Hospitalizations: : No recent hospitalization is reported. Screenin:44 Abuse screen: Denies threats or abuse. Nutritional screening: No deficits noted. tw2 Tuberculosis screening: No symptoms or risk factors identified. Fall Risk None identified. Assessment: 10:48 General: Appears in no apparent distress. comfortable, Behavior is calm, cooperative, aj appropriate for age. Pain: Denies pain. Neuro: Level of Consciousness is awake, alert, obeys commands, Oriented to person, place, time, situation, Appropriate for age. Cardiovascular: Reports chest pain. Respiratory: Airway is patent Respiratory effort is even, unlabored, Respiratory pattern is regular, symmetrical. Derm: Skin is intact, is healthy with good turgor, Skin is pink, warm \T\ dry. normal. Vital Signs: 09:29 BP 144 / 60; Pulse 98; Resp 20 S; Temp 98.5; Pulse Ox 91% on R/A; Weight 117.93 kg; iw Height 5 ft. 5 in. (165.10 cm); Pain 8/10; 10:48 BP 137 / 67; Pulse 68; Resp 18; Pulse Ox 99% on R/A; aj 09:29 Body Mass Index 43.27 (117.93 kg, 165.10 cm) iw ED Course: 09:19 Patient arrived in ED. as 09:29 Bronson Magdaleno MD is Attending Physician. rn 09:29 Bed in low position. Call light in reach. air sampling and monitoring on. Pulse ox on. NIBP on. tw2 09:31 Orville Emerson, RN is Primary Nurse. ae4 09:40 Inserted saline lock: 20 gauge in right antecubital area, using aseptic technique. tw2 Blood collected. 09:44 Arm band placed on. tw2 09:49 XRAY Chest (1 view) In Process Unspecified. EDMS 09:57 Triage completed. tw2 09:57 Patient maintains SpO2 saturation greater than 95% on room air. tw2 09:58 Report given to KAMERON Cardenas. tw2 10:34 Saravanan Harris MD is Referral Physician. rn 10:48 No provider procedures requiring assistance completed. IV discontinued, intact, aj bleeding controlled, No redness/swelling at site. Pressure dressing applied. Administered Medications: No medications were administered Outcome: 10:35 Discharge ordered by MD. rn 10:48 Discharged to home ambulatory. aj 10:48 Condition: good 10:48 Discharge instructions given to patient, Instructed on discharge instructions, follow up and referral plans. Demonstrated understanding of instructions, follow-up care. 10:50 Patient left the ED. aj Signatures: Dispatcher [employer] EDTheresa Long, Ade Ellis RN, Irene, Bronson Deleon RN, MD MD rn Wise, Tara, RN RN tw2 Orville Emerson, RN RN ae4
--- NOTE | 2019-04-14 10:35 | EDPHYS ---
Physician Documentation [facility] Name: Pascual Pearson Age: 43 yrs Sex: Male : 1975 Arrival Date: 04/14/2019 Time: 09:19 Bed 6 Private MD: ED Physician Bronson Magdaleno HPI: 04/14 09:35 This 43 yrs old Male presents to ER via Unassigned with complaints of Chest rn Pain, Nausea, Dizziness. 09:35 The patient or guardian reports chest pain that is located primarily in the substernal rn area. Onset: 1 week(s) ago. The pain does not radiate. Associated signs and symptoms: Pertinent positives: dizziness, Pertinent negatives: abdominal pain, cough, diaphoresis, shortness of breath, syncope, vomiting. The chest pain is described as sharp. Duration: The patient or guardian reports multiple episodes, that are intermittent. Modifying factors: The symptoms are alleviated by nothing. the symptoms are aggravated by deep breath. Severity of pain: At its worst the pain was mild in the emergency department the pain is unchanged. The patient has experienced similar episodes in the past. Reports 1-2 weeks of chest pain, sharp, center of chest, non-radiating, worse with deep breath, no hx of dvt, admitted for this chest pain last week, negative ECHO, is supposed to get outpatient stress test with cardiology but hasn't set it up. Reports today chest pain present and constant for 2.5 hours now. No cough/fever/trauma. + hx of acid reflux. Reports told during admission to stop his anxiety medication and now chest pain has gotten worse. . 09:42 + smoker. rn Historical: - Allergies: 09:58 No Known Allergies; tw2 10:00 No Known Allergies; iw - Home Meds: 09:58 Clonazepam Oral [Active]; Farxiga Oral [Active]; Glipizide Oral [Active]; metformin tw2 1,000 mg Oral tab 1 tab 2 times per day [Active]; Metoprolol Tartrate Oral [Active]; Mobic Oral [Active]; Lantus Sub-Q [Active]; Prozac Oral [Active]; Glyburide Oral [Active]; lisinopril Oral [Active]; - PMHx: 09:58 Diabetes - IDDM; chronic back pain; Hypertension; tw2 - PSHx: 09:58 None; tw2 - Immunization history:: Adult Immunizations. - Family history:: not pertinent. - Social history:: Smoking status: Patient uses tobacco products, smokes one-half pack cigarettes per day. - Ebola Screening: : Patient denies travel to an Ebola-affected area in the 21 days before illness onset Patient negative for fever greater than or equal to 101.5 degrees Fahrenheit, and additional compatible Ebola Virus Disease symptoms Patient denies exposure to infectious person Patient denies travel to an Ebola-affected area in the 21 days before illness onset No symptoms or risks identified at this time. - Hospitalizations: : No recent hospitalization is reported. ROS: 09:35 Constitutional: Negative for fever, chills, and weight loss, Eyes: Negative for injury, rn pain, redness, and discharge, Cardiovascular: Negative for palpitations, and edema, Respiratory: Negative for shortness of breath, cough, wheezing, and pleuritic chest pain, Abdomen/GI: Negative for abdominal pain, vomiting, diarrhea, and constipation, MS/Extremity: Negative for injury and deformity, Skin: Negative for injury, rash, and discoloration, Neuro: Negative for headache, weakness, numbness, tingling, and seizure. Exam: 09:35 Constitutional: Overweight male, no acute distress Head/Face: Normocephalic, rn atraumatic. Eyes: Pupils equal round and reactive to light, extra-ocular motions intact. Lids and lashes normal. Conjunctiva and sclera are non-icteric and not injected. Cornea within normal limits. Periorbital areas with no swelling, redness, or edema. ENT: MMM Neck: Trachea midline, no thyromegaly or masses palpated, and no cervical lymphadenopathy. Supple, full range of motion without nuchal rigidity, or vertebral point tenderness. No Meningismus. Cardiovascular: Regular rate and rhythm. No pulse deficits. Respiratory: Lungs have equal breath sounds bilaterally, clear to auscultation. No increased work of breathing, no retractions or nasal flaring. Abdomen/GI: soft, non-tender MS/ Extremity: Pulses equal, no cyanosis. Neurovascular intact. Full, normal range of motion. Equal circumference. Neuro: Awake and alert, GCS 15, oriented to person, place, time, and situation. Cranial nerves II-XII grossly intact. Motor strength 5/5 in all extremities. Sensory grossly intact. Cerebellar exam normal. Normal gait. Vital Signs: 09:29 BP 144 / 60; Pulse 98; Resp 20 S; Temp 98.5; Pulse Ox 91% on R/A; Weight 117.93 kg; iw Height 5 ft. 5 in. (165.10 cm); Pain 8/10; 10:48 BP 137 / 67; Pulse 68; Resp 18; Pulse Ox 99% on R/A; aj 09:29 Body Mass Index 43.27 (117.93 kg, 165.10 cm) iw MDM: 09:29 Patient medically screened. rn 10:33 Differential diagnosis: acute pericarditis, anxiety, coronary artery disease chest wall rn pain, costochondritis, esophagitis, gastritis, gastroesophageal reflux disease (GERD), pericarditis, pleurisy, pneumothorax, pulmonary embolus. Data reviewed: vital signs, nurses notes, lab test result(s), EKG, radiologic studies, plain films, and as a result, I will discharge patient. Counseling: I had a detailed discussion with the patient and/or guardian regarding: the historical points, exam findings, and any diagnostic results supporting the discharge/admit diagnosis, lab results, radiology results, the need for outpatient follow up, to return to the emergency department if symptoms worsen or persist or if there are any questions or concerns that arise at home. Special discussion: Based on the patient's history, exam, and Dx evaluation, there is no indication for emergent intervention or inpatient Tx. It is understood by the patient/guardian that if the Sx's persist or worsen they need to return immediately for re-evaluation. I discussed with the patient/guardian in detail that at this point there is no indication for admission to the hospital. It is understood, however, that if the symptoms persist or worsen the patient needs to return immediately for re-evaluation. Based on the history and exam findings, there is no indication for further emergent testing or inpatient evaluation. I discussed with the patient/guardian the need to see the timing adjuster for further evaluation of the symptoms. ED course: No acute findings on labs/ekg/cxr, will dc home with outpt stress test as told previously. Recommend smoking cessation and weight loss.. 04/14 09:34 Order name: Basic Metabolic Panel rn 04/14 09:34 Order name: CBC with Diff; Complete Time: 10:08 rn 04/14 09:34 Order name: NT PRO-BNP; Complete Time: 10:32 rn 04/14 09:34 Order name: Troponin (emerg Dept Use Only); Complete Time: 10:32 rn 04/14 09:34 Order name: Lipase; Complete Time: 10:32 rn 04/14 09:34 Order name: D-Dimer; Complete Time: 10:08 rn 04/14 09:34 Order name: XRAY Chest (1 view) rn 04/14 09:34 Order name: EKG; Complete Time: 09:35 rn 04/14 09:34 Order name: Cardiac monitoring; Complete Time: 09:40 rn 04/14 09:34 Order name: EKG - Nurse/Tech; Complete Time: 09:40 rn 04/14 09:34 Order name: IV Saline Lock; Complete Time: 09:40 rn 04/14 09:34 Order name: Labs collected and sent; Complete Time: 09:40 rn 04/14 09:34 Order name: O2 Per Protocol; Complete Time: 09:40 rn 04/14 09:35 Order name: Basic Metabolic Panel; Complete Time: 10:32 EDNC 04/14 09:34 Order name: O2 Sat Monitoring; Complete Time: 09:40 rn Administered Medications: No medications were administered Disposition: 04/14/19 10:35 Discharged to Home. Impression: Chest pain, unspecified. - Condition is Stable. - Discharge Instructions: Nonspecific Chest Pain. - Work release form, Medication Reconciliation Form, Thank You Letter, Antibiotic Education, Prescription Opioid Use form. - Follow up: Saravanan Harris MD; When: As needed; Reason: Recheck today's complaints, Re-evaluation by your physician. - Problem is an ongoing problem. - Symptoms have improved. Signatures: Dispatcher [employer] EDTheresa Long RN RN aj Williams, Irene, RN RN iw Nieto, Roman, MD MD rn Wise, Tara, RN RN tw2 Corrections: (The following items were deleted from the chart) 10:50 10:35 04/14/2019 10:35 Discharged to Home. Impression: Chest pain, unspecified. aj Condition is Stable. Forms are Medication Reconciliation Form, Thank You Letter, Antibiotic Education, Prescription Opioid Use. Follow up: Saravanan Harris; When: As needed; Reason: Recheck today's complaints, Re-evaluation by your physician. Problem is an ongoing problem. Symptoms have improved. rn
[2019-04-14 11:10] VITALS: TEMP 98.5
[2019-04-14 11:11] VITALS: BP 137/67; O2SAT 99
--- NOTE | 2019-04-14 11:34 | RAD REPORT ---
EXAM DESCRIPTION: RAD - Chest Single View - 04/14/2019 9:50 am CLINICAL HISTORY: CHEST PAIN Chest pain. COMPARISON: Chest Single View dated 04/06/2019; Chest Single View dated 08/01/2016; CHEST PA AND LAT 2 VIEW dated 12/17/2015; CHEST PA AND LAT 2 VIEW dated 06/09/2012 FINDINGS: Portable technique limits examination quality. The lungs are grossly clear. The heart is upper limit of normal in size. No displaced fractures. IMPRESSION: No acute intrathoracic process suspected.
--- NOTE | 2019-04-15 06:02 | EKG ---
Test Date: 2019-04-14 Test Time: 09:37:08 Technical Services Rep: MARY JANE MEASUREMENT RESULTS: Intervals: Rate: 94 MI: 158 QRSD: 94 QT: 344 QTc: 430 [place]: P: 57 MI: 158 QRS: 37 T: 40 INTERPRETIVE STATEMENTS: Normal sinus rhythm Normal ECG Compared to ECG 04/06/2019 09:25:59 No significant changes Electronically Signed On 04-15-19 06:01:26 CDT by Saravanan Harris
== END 2019-04-14 10:50 | disposition home or self-care (01) ==
LOC: ER 09:18
DX: R07.9 Chest pain, unspecified (principal); I10 Essential (primary) hypertension; E11.9 Type 2 diabetes mellitus without complications; F17.210 Nicotine dependence, cigarettes, uncomplicated; Z79.4 Long term (current) use of insulin
CPT/HCPCS: 36415; 71045; 80048; 83690; 83880; 84484; 85025; 85379; 93005; 99285

== ENCOUNTER 2019-12-12 00:56 | Emergency (ER) | payer BC ==
--- NOTE | 2019-12-12 02:56 | ER ---
Nurse's Notes [facility] Name: Pascual Pearson Age: 44 yrs Sex: Male : 1975 Arrival Date: 12/12/2019 Time: 00:57 Bed 20 Private MD: Diagnosis: Pneumonia due to other specified bacteria Presentation: 12/11 01:48 Chief complaint: Patient states: "I have family at home that was recently diagnosed jd3 with flu and strep throat. I have been trying to avoid them, but Tuesday I started to have a cough and now I am having the full body aches, more coughing, and some chest congestion.". Coronavirus screen: The patient has NOT traveled to a country currently being monitored by the CDC within the last 14 days. The patient has NOT had contact with any known and/or suspected case of coronavirus. Proceed with normal triage procedures. Ebola Screen: Patient negative for fever greater than or equal to 101.5 degrees Fahrenheit, and additional compatible Ebola Virus Disease symptoms. Initial Sepsis Screen: Does the patient meet any 2 criteria? No. Patient's initial sepsis screen is negative. Does the patient have a suspected source of infection? No. Patient's initial sepsis screen is negative. Risk Assessment: Do you want to hurt yourself or someone else? Patient reports no desire to harm self or others. 01:48 Method Of Arrival: Ambulatory jd3 01:48 Acuity: EVERT 4 jd3 02:00 Onset of symptoms was December 12, 2019. jd3 Historical: - Allergies: 01:57 No Known Allergies; jd3 - Home Meds: 01:57 lisinopril Oral [Active]; Fluoxetine Oral [Active]; glimepiride Oral [Active]; Klonopin jd3 Oral [Active]; - PMHx: 01:57 Diabetes - IDDM; Hypertension; chronic back pain; jd3 - PSHx: 01:57 right foot; Tonsillectomy; jd3 - Immunization history:: Adult Immunizations up to date. - Social history:: Smoking status: Patient reports the use of cigarette tobacco products, smokes one pack cigarettes per day. Screenin:00 Abuse screen: Denies threats or abuse. Nutritional screening: No deficits noted. jd3 Tuberculosis screening: No symptoms or risk factors identified. Fall Risk None identified. Assessment: 01:57 General: Appears in no apparent distress. uncomfortable, Behavior is calm, cooperative, jd3 appropriate for age. 01:58 Pain: Complains of pain in head and chest Quality of pain is described as aching. jd3 Neuro: Level of Consciousness is awake, alert, obeys commands, Oriented to person, place, time, situation. Cardiovascular: Heart tones S1 S2 present Capillary refill < 3 seconds Patient's skin is warm and dry. Respiratory: Reports cough that is persistent Airway is patent Respiratory effort is even, unlabored, Respiratory pattern is regular, symmetrical, Breath sounds are clear bilaterally. GI: No signs and/or symptoms were reported involving the gastrointestinal system. Patient currently denies constipation, diarrhea, nausea, vomiting. : No signs and/or symptoms were reported regarding the genitourinary system. EENT: No signs and/or symptoms were reported regarding the EENT system. Derm: Skin is intact, Skin is dry, Skin is normal, Skin temperature is warm. Musculoskeletal: Circulation, motion, and sensation intact. Range of motion: intact in all extremities. 03:08 Reassessment: Patient appears in no apparent distress at this time. Patient and/or jd3 family updated on plan of care and expected duration. Pain level reassessed. Patient is alert, oriented x 3, equal unlabored respirations, skin warm/dry/pink. Patient states feeling better. Vital Signs: 01:41 BP 145 / 73; Pulse 78; Resp 20; Temp 97.6(O); Pulse Ox 95% ; lt1 03:13 BP 130 / 79; Pulse 76; Resp 17 S; Pulse Ox 100% on R/A; jd3 ED Course: 00:57 Patient arrived in ED. cl3 01:42 Papito Gil, RN is Primary Nurse. jd3 01:50 Frankie Mercer PA is PHCP. cp 01:50 Osbaldo Perez MD is Attending Physician. cp 01:53 Triage completed. jd3 01:58 Arm band placed on. jd3 02:00 Patient has correct armband on for positive identification. Bed in low position. Call jd3 light in reach. Side rails up X 1. 02:55 XRAY Chest Pa And Lat (2 Views) In Process Unspecified. EDMS 03:08 No provider procedures requiring assistance completed. Patient did not have IV access jd3 during this emergency room visit. Administered Medications: 03:07 Drug: Zithromax 500 mg Route: PO; jd3 03:08 Follow up: Response: Medication administered at discharge. jd3 Outcome: 02:56 Discharge ordered by . arelis 03:09 Discharged to home ambulatory. jd3 03:09 Condition: stable 03:09 Discharge instructions given to patient, Instructed on discharge instructions, follow up and referral plans. medication usage, Demonstrated understanding of instructions, follow-up care, medications, Prescriptions given X 3. 03:14 Patient left the ED. jd3 Signatures: Dispatcher [employer] EDMS Frankie Mercer PA PA cp Davies, Jonathon, RN RN jd3 Elizabeth Moy 1 Kwesi Mcmanus cl3
--- NOTE | 2019-12-12 02:56 | EDPHYS ---
Physician Documentation [facility] Name: Pascual Pearson Age: 44 yrs Sex: Male : 1975 Arrival Date: 12/12/2019 Time: 00:57 Bed 20 Private MD: ED Physician Osbaldo Perez HPI: 12/11 02:10 This 44 yrs old Male presents to ER via Ambulatory with complaints of Cough, cp Bodyache. 02:10 The patient or guardian reports cough, that is intermittent, with no sputum. Onset: The cp symptoms/episode began/occurred 3 day(s) ago. Severity of symptoms: in the emergency department the symptoms are unchanged, despite home interventions. Associated signs and symptoms: Pertinent positives: fever, sore throat, Pertinent negatives: chest pain, diarrhea, vomiting. 03:06 Patient reports son-in-law who resides in same house was recently diagnosed with cp influenza. Historical: - Allergies: 01:57 No Known Allergies; jd3 - Home Meds: 01:57 lisinopril Oral [Active]; Fluoxetine Oral [Active]; glimepiride Oral [Active]; Klonopin jd3 Oral [Active]; - PMHx: 01:57 Diabetes - IDDM; Hypertension; chronic back pain; jd3 - PSHx: 01:57 right foot; Tonsillectomy; jd3 - Immunization history:: Adult Immunizations up to date. - Social history:: Smoking status: Patient reports the use of cigarette tobacco products, smokes one pack cigarettes per day. ROS: 02:15 Constitutional: Negative for chills, fever, poor PO intake. cp 02:15 Eyes: Negative for injury, pain, redness, and discharge. cp Exam: 02:20 Constitutional: The patient appears in no acute distress, alert, awake, cp non-diaphoretic, non-toxic, well developed, well nourished. 02:20 Head/Face: Normocephalic, atraumatic. cp 02:20 Eyes: Periorbital structures: appear normal, Conjunctiva: normal, no exudate, no cp injection, Lids and lashes: appear normal, bilaterally. 02:20 ENT: External ear(s): are unremarkable, Ear canal(s): are normal, clear, TM's: bulging, is not appreciated, bilaterally, dullness, bilaterally, erythema, is not appreciated, bilaterally, Nose: is normal, Mouth: Lips: moist, Oral mucosa: pink and intact, moist, Posterior pharynx: is normal, airway is patent, no erythema, no exudate, Uvula: midline, swelling, is not appreciated, erythema, is not appreciated, exudate, is not appreciated. 02:20 Neck: ROM/movement: is normal, is supple, no meningismus, no nuchal rigidity, Lymph nodes: no appreciated lymphadenopathy. 02:20 Chest/axilla: Inspection: normal, Palpation: is normal, no crepitus, no tenderness. 02:20 Cardiovascular: Rate: normal, Rhythm: regular. 02:20 Respiratory: the patient does not display signs of respiratory distress, Respirations: normal, no use of accessory muscles, no retractions, labored breathing, is not present, Breath sounds: decreased breath sounds, are not appreciated, + upper airway congestion. wheezing: is not appreciated. 02:20 Abdomen/GI: Exam negative for discomfort, distension, guarding, Inspection: abdomen appears normal. 02:20 Skin: no rash present. Vital Signs: 01:41 BP 145 / 73; Pulse 78; Resp 20; Temp 97.6(O); Pulse Ox 95% ; lt1 03:13 BP 130 / 79; Pulse 76; Resp 17 S; Pulse Ox 100% on R/A; jd3 MDM: 01:55 Patient medically screened. cp 02:53 Data reviewed: vital signs, nurses notes, radiologic studies, plain films. Test cp interpretation: by ED physician or midlevel provider: plain radiologic studies, chest xray shows concern for early infiltrate right lower lobe. Counseling: I had a detailed discussion with the patient and/or guardian regarding: the historical points, exam findings, and any diagnostic results supporting the discharge/admit diagnosis, lab results, radiology results, the need for outpatient follow up, a family practitioner, to return to the emergency department if symptoms worsen or persist or if there are any questions or concerns that arise at home. 03 02:05 Order name: Influenza Screen (a \T\ B); Complete Time: 02:44 cp 03 02:44 Interpretation: Reviewed. cp 12/11 02:05 Order name: Strep; Complete Time: 02:44 cp 12/11 02:11 Order name: XRAY Chest Pa And Lat (2 Views); Complete Time: 18:29 cp 12/11 18:29 Interpretation: Report reviewed. cp 12/11 02:45 Order name: Throat Culture EDMS Administered Medications: 03:07 Drug: Zithromax 500 mg Route: PO; jd3 03:08 Follow up: Response: Medication administered at discharge. jd3 Disposition: 07:03 Co-signature as Attending Physician, Osbaldo Perez MD I agree with the assessment and tw4 plan of care. Disposition: 12/12/19 02:56 Discharged to Home. Impression: Pneumonia due to other specified bacteria. - Condition is Stable. - Discharge Instructions: Community-Acquired Pneumonia, Adult. - Prescriptions for Zithromax Z- Osbaldo 250 mg Oral Tablet - take 1 tablet by ORAL route as directed for 5 days Day 1 - take two (2) tablets one time. Day 2, 3, 4 , 5 take one (1) tablet once daily.; 6 tablet. Tessalon Perles 100 mg Oral Capsule - take 2 capsule by ORAL route every 8 hours As needed; 20 capsule. Tamiflu 75 mg Oral Capsule - take 1 tablet by ORAL route every 12 hours for 5 days; 10 tablet. - Medication Reconciliation Form, Thank You Letter, Antibiotic Education, Prescription Opioid Use, Work release form form. - Follow up: Private Physician; When: 1 - 2 days; Reason: Recheck today's complaints. - Problem is new. - Symptoms have improved. Signatures: Dispatcher [employer] EDMS Frankie Mercer PA PA cp Davies, Jonathon, RN RN jd3 Wadley, Terrence, MD MD tw4 Corrections: (The following items were deleted from the chart) 03:14 02:56 12/12/2019 02:56 Discharged to Home. Impression: Pneumonia due to other specified jd3 bacteria. Condition is Stable. Forms are Medication Reconciliation Form, Thank You Letter, Antibiotic Education, Prescription Opioid Use. Follow up: Private Physician; When: 1 - 2 days; Reason: Recheck today's complaints. Problem is new. Symptoms have improved. cp
[2019-12-12] MEDS ORDERED: AZITHROMYCIN 250 MG TAB ONE (03:04)
[2019-12-12 03:19] VITALS: TEMP 97.6
[2019-12-12 03:20] VITALS: BP 130/79; O2SAT 100
--- NOTE | 2019-12-12 08:33 | RAD REPORT ---
EXAM DESCRIPTION: RAD - Chest Pa And Lat (2 Views) - 12/12/2019 2:55 am CLINICAL HISTORY: Cough;Fever Chest pain. COMPARISON: Chest Single View dated 04/14/2019; Chest Single View dated 04/06/2019; Chest Single View d ated 08/01/2016; CHEST PA AND LAT 2 VIEW dated 12/17/2015 FINDINGS: Interstitial lung prominence is noted, possibly related to bronchitis or asthma. No focal consolidation typical of pneumonia seen. The heart is mildly enlarged in size. No displaced fractures .
== END 2019-12-12 03:14 | disposition home or self-care (01) ==
LOC: ER 00:56
DX: J15.8 Pneumonia due to other specified bacteria (principal); F17.210 Nicotine dependence, cigarettes, uncomplicated; I10 Essential (primary) hypertension
CPT/HCPCS: 71046; 87070; 87081; 87804; 99283

== ENCOUNTER 2019-12-15 17:25 | Emergency (ER) | payer BC ==
--- NOTE | 2019-12-15 19:52 | RAD REPORT ---
EXAM DESCRIPTION: RAD - Chest Single View - 12/15/2019 7:45 pm CLINICAL HISTORY: SOB COMPARISON: Chest exam December 12, 2019 TECHNIQUE: AP portable chest image was obtained 12/15/2019 7:45 pm . FINDINGS: No focal lung parenchymal process. Slightly shallow inspiration, portable technique and kaykay dy habitus accentuate the interstitial pattern. Significant interstitial finding is unlikely. No sign ificant change from comparison. Heart size is upper normal. Vasculature within normal limits. No petra urable pleural effusion and no pneumothorax. No acute bony abnormality seen. No acute aortic findings suspected. IMPRESSION: No acute cardiopulmonary process.
[2019-12-15] MEDS ORDERED: ALBUTEROL 2.5 MG/3 ML NEB SOL ONE (20:04)
[2019-12-15] MEDS ORDERED: IPRATROPIUM BROM 0.5MG/2.5ML ONE (20:04)
[2019-12-15] MEDS ORDERED: METHYLPREDNISOLONE 125 MG INJ ONE (20:52)
--- NOTE | 2019-12-15 21:13 | ER ---
Nurse's Notes [facility] Name: Pascual Pearson Age: 44 yrs Sex: Male : 1975 Arrival Date: 12/15/2019 Time: 17:28 Bed 13 Private MD: Diagnosis: Acute bronchospasm Presentation: 12/14 18:05 Chief complaint: Patient states: Diagnosed with pneumonia in the ED 4 days ago. Pt ss states, "I was asleep just a while ago and my woke me up. She noticed I was having trouble breathing. I've been having a lot of cold sweats as well.". Coronavirus screen: The patient has NOT traveled to a country currently being monitored by the [facility] within the last 14 days. Proceed with normal triage procedures. Ebola Screen: Patient denies exposure to infectious person. Patient denies travel to an Ebola-affected area in the 21 days before illness onset. Initial Sepsis Screen: Does the patient meet any 2 criteria? No. Patient's initial sepsis screen is negative. Does the patient have a suspected source of infection? Yes: Productive cough/pneumonia. Risk Assessment: Do you want to hurt yourself or someone else? Patient reports no desire to harm self or others. 18:05 Method Of Arrival: Ambulatory ss 18:05 Acuity: EVERT 3 ss 19:30 Onset of symptoms was December 11, 2019 at 08:00. vc Triage Assessment: 20:00 General: Appears in no apparent distress. uncomfortable, ill, Behavior is calm, vc cooperative, appropriate for age. Pain: Denies pain. Respiratory: Breath sounds are clear. Historical: - Allergies: 18:09 No Known Allergies; ss - PMHx: 18:09 Hypertension; Diabetes - IDDM; chronic back pain; Sleep Apnea; ss - PSHx: 18:09 right foot; Tonsillectomy; ss - Immunization history:: Adult Immunizations up to date. - Social history:: Smoking status: Patient reports the use of cigarette tobacco products, smokes one pack cigarettes per day. Screenin:30 Abuse screen: Denies threats or abuse. Nutritional screening: No deficits noted. vc Tuberculosis screening: No symptoms or risk factors identified. Fall Risk None identified. Assessment: 19:30 Cardiovascular: Capillary refill Patient's skin is warm and dry. Respiratory: Airway is vc patent Respiratory effort is even, unlabored, Respiratory pattern is regular, symmetrical. 19:30 General: Appears in no apparent distress. uncomfortable, Behavior is calm, cooperative, vc appropriate for age. Pain: Denies pain. Respiratory: Airway is patent Respiratory effort is even, unlabored, Respiratory pattern is regular, symmetrical. Respiratory: Breath sounds are clear. GI: No signs and/or symptoms were reported involving the gastrointestinal system. : No signs and/or symptoms were reported regarding the genitourinary system. Derm: Skin temperature is warm. 20:30 Reassessment: Patient and/or family updated on plan of care and expected duration. Pain vc level reassessed. Patient states symptoms have improved. 21:30 Reassessment: Patient and/or family updated on plan of care and expected duration. Pain vc level reassessed. Patient denies pain at this time. Patient states feeling better. Patient states symptoms have improved. Vital Signs: 18:05 BP 142 / 70; Pulse 82; Resp 18; Temp 98.2(TE); Pulse Ox 96% on R/A; Weight 117.93 kg; ss Height 5 ft. 5 in. (165.10 cm); 20:30 BP 142 / 90; Pulse 77; Resp 17; Pulse Ox 98% on R/A; vc 21:30 BP 153 / 67; Pulse 89; Resp 15; Pulse Ox 98% on R/A; vc 18:05 Body Mass Index 43.27 (117.93 kg, 165.10 cm) ED Course: 17:28 Patient arrived in ED. mr 18:08 Triage completed. ss 18:09 Arm band placed on right wrist. ss 19:26 Osbaldo Perez MD is Attending Physician. tw4 19:30 Patient has correct armband on for positive identification. Bed in low position. Pulse vc ox on. NIBP on. 19:45 CXR XRAY In Process Unspecified. EDMS 19:54 Dona Ragland, RN is Primary Nurse. vc 21:30 No provider procedures requiring assistance completed. Patient did not have IV access vc during this emergency room visit. Administered Medications: 20:16 Drug: DuoNeb (3:1) (2.5 mg - 0.5 mg) 3 ml Route: Nebulizer; vc 21:00 Follow up: Response: No adverse reaction vc 21:09 Drug: SOLU-Medrol 125 mg Route: IM; Site: right ventrogluteal; vc 21:30 Follow up: Response: No adverse reaction vc Outcome: 21:11 Discharge ordered by . leo 21:35 Discharged to home ambulatory. vc 21:35 Condition: good 21:35 Discharge instructions given to patient, Instructed on discharge instructions, follow up and referral plans. medication usage, Demonstrated understanding of instructions, follow-up care, medications. 21:40 Patient left the ED. vc Signatures: Dispatcher [employer] Debbie Keith Shelby, RN RN Osbaldo Chan MD MD tw4 Dona Ragland RN RN vc
--- NOTE | 2019-12-15 21:14 | EDPHYS ---
Physician Documentation [facility] Name: Pascual Pearson Age: 44 yrs Sex: Male : 1975 Arrival Date: 12/15/2019 Time: 17:28 Bed 13 Private MD: ED Physician Osbaldo Perez HPI: 12/14 19:56 This 44 yrs old Male presents to ER via Ambulatory with complaints of tw4 Congestion, Shortness Of Breath. 19:56 The patient has shortness of breath at rest. Onset: The symptoms/episode began/occurred tw4 yesterday. Duration: The symptoms are continuous, and are unchanged since they started. The patient's shortness of breath has no apparent modifying factors. Associated signs and symptoms: The patient has no apparent associated signs or symptoms. The patient has not experienced similar symptoms in the past. 19:58 The patient has been recently seen at the [facility] Emergency tw4 Department, yesterday. Historical: - Allergies: 18:09 No Known Allergies; ss - PMHx: 18:09 Hypertension; Diabetes - IDDM; chronic back pain; Sleep Apnea; ss - PSHx: 18:09 right foot; Tonsillectomy; ss - Immunization history:: Adult Immunizations up to date. - Social history:: Smoking status: Patient reports the use of cigarette tobacco products, smokes one pack cigarettes per day. ROS: 19:56 Constitutional: Negative for fever, chills, and weight loss, Eyes: Negative for injury, tw4 pain, redness, and discharge, Cardiovascular: Negative for chest pain, palpitations, and edema, Abdomen/GI: Negative for abdominal pain, nausea, vomiting, diarrhea, and constipation. 19:56 MS/Extremity: Negative for injury and deformity, Skin: Negative for injury, rash, and discoloration, Neuro: Negative for headache, weakness, numbness, tingling, and seizure. 19:56 Respiratory: Positive for cough, shortness of breath, Negative for dyspnea on exertion, hemoptysis. Exam: 19:56 Constitutional: This is a well developed, well nourished patient who is awake, alert, tw4 and in no acute distress. Head/Face: Normocephalic, atraumatic. Chest/axilla: Normal chest wall appearance and motion. Nontender with no deformity. No lesions are appreciated. Cardiovascular: Regular rate and rhythm with a normal S1 and S2. No gallops, murmurs, or rubs. Normal PMI, no JVD. No pulse deficits. Abdomen/GI: Soft, non-tender, with normal bowel sounds. No distension or tympany. No guarding or rebound. No evidence of tenderness throughout. Back: No spinal tenderness. No costovertebral tenderness. Full range of motion. MS/ Extremity: Pulses equal, no cyanosis. Neurovascular intact. Full, normal range of motion. Neuro: Awake and alert, GCS 15, oriented to person, place, time, and situation. Cranial nerves II-XII grossly intact. Motor strength 5/5 in all extremities. Sensory grossly intact. Cerebellar exam normal. Normal gait. 19:56 Respiratory: the patient does not display signs of respiratory distress, Respirations: normal, Breath sounds: no acute changes. Vital Signs: 18:05 BP 142 / 70; Pulse 82; Resp 18; Temp 98.2(TE); Pulse Ox 96% on R/A; Weight 117.93 kg; ss Height 5 ft. 5 in. (165.10 cm); 20:30 BP 142 / 90; Pulse 77; Resp 17; Pulse Ox 98% on R/A; vc 21:30 BP 153 / 67; Pulse 89; Resp 15; Pulse Ox 98% on R/A; vc 18:05 Body Mass Index 43.27 (117.93 kg, 165.10 cm) ss MDM: 19:26 Patient medically screened. tw4 21:09 Differential diagnosis: asthma, Bronchitis pneumonia, pulmonary edema, Pulmonary tw4 Embolism reactive airway disease. Antibiotic administration: The patient is discharged and will get outpatient antibiotics, Zithromax. Data reviewed: vital signs, nurses notes. Data interpreted: Pulse oximetry: Interpretation: normal. Counseling: I had a detailed discussion with the patient and/or guardian regarding: the historical points, exam findings, and any diagnostic results supporting the discharge/admit diagnosis. Medication response: albuterol nebulizer treatment(s) relieved the patient's symptoms. The patient is no longer wheezing. Response to treatment: and as a result, I will discharge patient. Special discussion: I discussed with the patient/guardian in detail that at this point there is no indication for admission to the hospital. It is understood, however, that if the symptoms persist or worsen the patient needs to return immediately for re-evaluation. 12/14 19:27 Order name: CXR XRAY; Complete Time: 20:58 tw4 Administered Medications: 20:16 Drug: DuoNeb (3:1) (2.5 mg - 0.5 mg) 3 ml Route: Nebulizer; vc 21:00 Follow up: Response: No adverse reaction vc 21:09 Drug: SOLU-Medrol 125 mg Route: IM; Site: right ventrogluteal; vc 21:30 Follow up: Response: No adverse reaction vc Disposition: 12/15/19 21:11 Discharged to Home. Impression: Acute bronchospasm. - Condition is Stable. - Discharge Instructions: Asthma, Adult, Bronchospasm, Adult, How to Use an Inhaler. - Prescriptions for Medrol (Osbaldo) 4 mg Oral Tablets, Dose Pack - take 1 tablet by ORAL route as directed - follow package instructions; 1 packet. Albuterol Sulfate 90 mcg/actuation - inhale 1-2 puff by INHALATION route every 4-6 hours; 1 Inhaler. Albuterol Sulfate 2.5 mg /3 mL (0.083 %) Inhalation Solution for Nebulization - inhale 1 unit by NEBULIZATION route every 8 hours As needed; 1 box. - Medication Reconciliation Form, Thank You Letter, Antibiotic Education, Prescription Opioid Use, Work release form form. - Follow up: Private Physician; When: Upon discharge from the Emergency Department; Reason: Recheck today's complaints, Continuance of care, Re-evaluation by your physician. - Problem is new. - Symptoms have improved. Signatures: Dispatcher [employer] EDOR Trista Thayer RN RN Osbaldo Perez MD MD tw4 Dona Ragland RN RN vc Corrections: (The following items were deleted from the chart) 21:40 21:11 12/15/2019 21:11 Discharged to Home. Impression: Acute bronchospasm. Condition is vc Stable. Forms are Medication Reconciliation Form, Thank You Letter, Antibiotic Education, Prescription Opioid Use. Follow up: Private Physician; When: Upon discharge from the Emergency Department; Reason: Recheck today's complaints, Continuance of care, Re-evaluation by your physician. Problem is new. Symptoms have improved. tw4
== END 2019-12-15 21:40 | disposition home or self-care (01) ==
LOC: ER 17:25
DX: J98.01 Acute bronchospasm (principal); F17.210 Nicotine dependence, cigarettes, uncomplicated
CPT/HCPCS: 71045; 94640; 96372; 99284; J2930

== ENCOUNTER 2020-01-13 04:39 | Emergency (ER) | payer BC ==
[2020-01-13] MEDS ORDERED: IPRATROPIUM BROM 0.5MG/2.5ML ONE (05:20)
[2020-01-13] MEDS ORDERED: NA CHLORIDE 0.9% 1,000 ML ONE (05:20)
[2020-01-13] MEDS ORDERED: LEVALBUTEROL 1.25 MG/3 ML NEB ONE (05:20)
[2020-01-13 05:38] LABS: Absolute Lymphocytes (CBC) 2.5 K/uL (0.7-4.9); Basophils % 0.7 % (0-1.3); Hematocrit 45.5 % (39.6-49.0); Lymphocytes % 31.2 % (15.3-44.8); MPV 8.3 fL (7.6-11.3); RBC Red Blood Cell Count 4.89 M/uL (4.33-5.43)
[2020-01-13 05:41] LABS: Protime INR 0.91
[2020-01-13 05:52] LABS: ALT/SGPT 38 U/L (12-78); AST/SGOT 14 U/L (15-37); Albumin 3.3 g/dL (3.4-5.0); Alkaline Phosphatase 112 U/L (45-117); BUN Blood Urea Nitrogen 14 mg/dL (7-18); Bicarbonate 28 mmol/L (21-32); Bilirubin Direct 0.1 mg/dL (0-0.2); Bilirubin Total 0.5 mg/dL (0.2-1.0); Glucose Level 228 mg/dL (74-106); Magnesium 1.9 mg/dL (1.8-2.4); NT PRO-BNP 57 pg/mL (<125); Protein, Total 7.1 g/dL (6.4-8.2); Troponin (Emerg Dept Use Only) < 0.02 ng/mL (0.0-0.045)
[2020-01-13 06:55] LABS: Sodium Level 138 mmol/L (136-145)
--- NOTE | 2020-01-13 07:16 | RAD REPORT ---
EXAM DESCRIPTION: CT - Chest For Pe Angio - 01/13/2020 6:50 am CLINICAL HISTORY: Chest pain COMPARISON: None. TECHNIQUE: Dynamically enhanced axial 3 mm thick images of the chest were obtained during administra tion of <100> mL Isovue 370 IV contrast. Coronal and oblique reconstruction images were generated and reviewed. Exam utilizes a protocol for optimal evaluation of pulmonary arterial tree. Maximum intensity projections 3D imaging was utilized All CT scans are performed using dose optimization technique as appropriate and may include automated exposure control or mA/KV adjustment according to patient size. FINDINGS: A pulmonary embolus is not seen. A thoracic aortic aneurysm is not noted. Mild mediastinal and hilar lymphadenopathy A pleural effusion is not seen. A pericardial effusion is not seen. A lung consolidation is not present. Fatty liver IMPRESSION: Negative for a pulmonary embolism. Mild mediastinal and hilar lymphadenopathy. Followup CT in 3 months recommended to assess stability/r esolution
--- NOTE | 2020-01-13 07:25 | EDPHYS ---
Physician Documentation [facility] Name: Pascual Pearson Age: 44 yrs Sex: Male : 1975 Arrival Date: 01/13/2020 Time: 04:42 Bed 6 Private MD: ED Physician Frankie Back HPI: 01/12 05:12 This 44 yrs old Male presents to ER via Ambulatory with complaints of sybil Shortness Of Breath, CHILLS. 05:12 The patient has shortness of breath at rest. Onset: The symptoms/episode began/occurred sybil this morning, today. Duration: The symptoms are continuous, but are steadily getting better. The patient's shortness of breath is aggravated by supine position. Associated signs and symptoms: Pertinent positives: non-productive cough. Severity of symptoms: At their worst the symptoms were moderate in the emergency department the symptoms have improved moderately. The patient has experienced similar episodes in the past, a few times. Historical: - Allergies: 05:09 No Known Allergies; rv - PMHx: 05:09 chronic back pain; Diabetes - IDDM; Hypertension; Sleep Apnea; rv - PSHx: 05:09 Tonsillectomy; rv - Immunization history:: Adult Immunizations up to date. - Social history:: Smoking status: Patient reports the use of cigarette tobacco products, smokes one pack cigarettes per day. ROS: 05:14 Constitutional: Negative for fever, chills, and weight loss, Eyes: Negative for injury, sybil pain, redness, and discharge, ENT: Negative for injury, pain, and discharge, Neck: Negative for injury, pain, and swelling, Cardiovascular: Negative for chest pain, palpitations, and edema, Abdomen/GI: Negative for abdominal pain, nausea, vomiting, diarrhea, and constipation, Back: Negative for injury and pain, : Negative for injury, bleeding, discharge, and swelling, MS/Extremity: Negative for injury and deformity, Skin: Negative for injury, rash, and discoloration, Neuro: Negative for headache, weakness, numbness, tingling, and seizure, Psych: Negative for depression, anxiety, suicide ideation, homicidal ideation, and hallucinations, Allergy/Immunology: Negative for hives, rash, and allergies, Endocrine: Negative for neck swelling, polydipsia, polyuria, polyphagia, and marked weight changes, Hematologic/Lymphatic: Negative for swollen nodes, abnormal bleeding, and unusual bruising. 05:14 Respiratory: Positive for cough, shortness of breath, on exertion. Exam: 05:14 Constitutional: This is a well developed, well nourished patient who is awake, alert, sybil and in no acute distress. Head/Face: Normocephalic, atraumatic. Eyes: Pupils equal round and reactive to light, extra-ocular motions intact. Lids and lashes normal. Conjunctiva and sclera are non-icteric and not injected. Cornea within normal limits. Periorbital areas with no swelling, redness, or edema. ENT: Nares patent. No nasal discharge, no septal abnormalities noted. Tympanic membranes are normal and external auditory canals are clear. Oropharynx with no redness, swelling, or masses, exudates, or evidence of obstruction, uvula midline. Mucous membranes moist. Neck: Trachea midline, no thyromegaly or masses palpated, and no cervical lymphadenopathy. Supple, full range of motion without nuchal rigidity, or vertebral point tenderness. No Meningismus. Chest/axilla: Normal chest wall appearance and motion. Nontender with no deformity. No lesions are appreciated. Cardiovascular: Regular rate and rhythm with a normal S1 and S2. No gallops, murmurs, or rubs. Normal PMI, no JVD. No pulse deficits. Abdomen/GI: Soft, non-tender, with normal bowel sounds. No distension or tympany. No guarding or rebound. No evidence of tenderness throughout. Back: No spinal tenderness. No costovertebral tenderness. Full range of motion. Male : Normal genitalia with no discharge or lesions. Skin: Warm, dry with normal turgor. Normal color with no rashes, no lesions, and no evidence of cellulitis. MS/ Extremity: Pulses equal, no cyanosis. Neurovascular intact. Full, normal range of motion. Neuro: Awake and alert, GCS 15, oriented to person, place, time, and situation. Cranial nerves II-XII grossly intact. Motor strength 5/5 in all extremities. Sensory grossly intact. Cerebellar exam normal. Normal gait. Psych: Awake, alert, with orientation to person, place and time. Behavior, mood, and affect are within normal limits. 05:14 Respiratory: Respirations: normal, no acute changes, Breath sounds: are clear throughout, no decreased breath sounds, Respiratory rate: 20 05:14 Musculoskeletal/extremity: DVT Exam: No signs of deep vein thrombosis. no pain, no swelling, no tenderness, negative Homans' sign noted on exam, no appreciated bluish discoloration, no erythema, no increased warmth. Vital Signs: 05:06 BP 155 / 90; Pulse 78; Resp 20; Temp 98.5; Pulse Ox 93% on R/A; Weight 122.47 kg; rv Height 5 ft. 5 in. (165.10 cm); Pain 0/10; 05:30 BP 149 / 72; Pulse 73; Resp 17; Pulse Ox 93% on R/A; rv 06:00 BP 158 / 90; Pulse 75; Resp 19; Pulse Ox 94% on R/A; rv 07:20 BP 149 / 69; Pulse 72; Resp 18; Pulse Ox 95% on R/A; em 05:06 Body Mass Index 44.93 (122.47 kg, 165.10 cm) rv MDM: 05:00 Patient medically screened. [facility] 05:15 Data reviewed: vital signs, nurses notes, lab test result(s), EKG, radiologic studies, [facility] CT scan, plain films. 01/12 05:12 Order name: Basic Metabolic Panel; Complete Time: 07:11 [facility] 01/12 05:12 Order name: CBC with Diff; Complete Time: 05:53 [facility] 01/12 05:12 Order name: LFT's; Complete Time: 07:11 [facility] 01/12 05:12 Order name: Magnesium; Complete Time: 07:11 [facility] 01/12 05:12 Order name: NT PRO-BNP; Complete Time: 07:11 [facility] 01/12 05:12 Order name: PT-INR; Complete Time: 05:53 [facility] 01/12 05:12 Order name: Troponin (emerg Dept Use Only); Complete Time: 07:11 [facility] 01/12 05:12 Order name: XRAY Chest (1 view) [facility] 01/12 05:12 Order name: Blood Culture Adult (2) [facility] 01/12 05:12 Order name: CT Chest For PE Angio; Complete Time: 07:18 [facility] 01/12 05:12 Order name: EKG; Complete Time: 05:13 [facility] 01/12 05:12 Order name: Cardiac monitoring; Complete Time: 05:38 [facility] 01/12 05:12 Order name: EKG - Nurse/Tech; Complete Time: : [facility] 01/12 05:12 Order name: IV Saline Lock; Complete Time: [facility] 01/12 05:12 Order name: Labs collected and sent; Complete Time: [facility] 01/12 05:12 Order name: O2 Per Protocol; Complete Time: [facility] 01/12 05:12 Order name: O2 Sat Monitoring; Complete Time: [facility] Administered Medications: 05:15 Drug: NS 0.9% 500 ml Route: IV; Rate: bolus; Site: right forearm; rv 05:45 Follow up: IV Status: Completed infusion; IV Intake: 500ml rv 05:45 Drug: NS 0.9% 1000 ml Route: IV; Rate: 125 ml/hr; Site: right forearm; rv 07:43 Follow up: IV Status: Order to discontinue infusion em 07:10 Not Given (Physician Discretion): Xopenex 2.5 mg Inhalation once em 07:10 Not Given (Physician Discretion): AtroVENT Aerosol 0.5 mg Inhalation once em Disposition: 01/13/20 07:23 Discharged to Home. Impression: Dyspnea, Obesity, unspecified, Apnea, not elsewhere classified - OBSTRUCTIVE. - Condition is Stable. - Discharge Instructions: Type 1 Diabetes Mellitus, Diagnosis, Adult, Obesity, Adult, Shortness of Breath, Shortness of Breath, [id number], Obesity, Adult, [id number], Type 1 Diabetes Mellitus, Self Care, Adult, Type 1 Diabetes Mellitus, Diagnosis, Adult, Nckx-ag-Owle, Type 1 Diabetes Mellitus, Self Care, Adult, [id number]. - Prescriptions for Albuterol Sulfate 90 mcg/actuation - inhale 1-2 puff by INHALATION route every 4-6 hours; 1 Inhaler. - Medication Reconciliation Form, Thank You Letter, Antibiotic Education, Prescription Opioid Use, Work release form form. - Follow up: Private Physician; When: 2 - 3 days; Reason: Recheck today's complaints, Continuance of care, Re-evaluation by your physician. Follow up: Familia Grady MD; When: 2 - 3 days; Reason: Recheck today's complaints, Re-evaluation by your physician. - Problem is new. - Symptoms have improved. Signatures: Dispatcher [employer] EDFrankie Hudson MD MD cha Munoz, Edgar, RN RN em Rafal Gupta, RN RN rv Corrections: (The following items were deleted from the chart) 07:31 05:12 Urine Dipstick-Ancillary ordered. sybil em 07:43 07:23 01/13/2020 07:23 Discharged to Home. Impression: Dyspnea; Obesity, unspecified; em Apnea, not elsewhere classified - OBSTRUCTIVE. Condition is Stable. Forms are Medication Reconciliation Form, Thank You Letter, Antibiotic Education, Prescription Opioid Use. Follow up: Private Physician; When: 2 - 3 days; Reason: Recheck today's complaints, Continuance of care, Re-evaluation by your physician. Follow up: Familia Grady; When: 2 - 3 days; Reason: Recheck today's complaints, Re-evaluation by your physician. Problem is new. Symptoms have improved. sybil
--- NOTE | 2020-01-13 07:25 | ER ---
Nurse's Notes [facility] Name: Pascual Pearson Age: 44 yrs Sex: Male : 1975 Arrival Date: 01/13/2020 Time: 04:42 Bed 6 Private MD: Diagnosis: Dyspnea;Obesity, unspecified;Apnea, not elsewhere classified-OBSTRUCTIVE Presentation: 01/12 05:06 Chief complaint: Patient states: I'VE BEEN TREATED WITH PNEUMONIA THREE WEEKS AGO. I rv WAS ALSO TESTED FOR FLU AND STREP, WITH NEGATIVE RESULTS. YESTERDAY I STARTED HAVING SOB. LAST NIGHT I COULD NOT SLEEP. I TOOK MY INHALER AND STILL GETTING WORSE. DENIES FEVER. Coronavirus screen: Proceed with normal triage. Ebola Screen: No symptoms or risks identified at this time. Initial Sepsis Screen: Does the patient meet any 2 criteria? No. Patient's initial sepsis screen is negative. Does the patient have a suspected source of infection? No. Patient's initial sepsis screen is negative. Risk Assessment: Do you want to hurt yourself or someone else? Patient reports no desire to harm self or others. Onset of symptoms was January 12, 2020 at 08:00. 05:06 Method Of Arrival: Ambulatory rv 05:06 Acuity: EVERT 3 rv Triage Assessment: 05:09 General: Appears in no apparent distress. Behavior is calm, cooperative. Pain: Denies rv pain. EENT: No signs and/or symptoms were reported regarding the EENT system. Neuro: Level of Consciousness is awake, alert, obeys commands, Oriented to person, place, time, situation. Cardiovascular: Patient's skin is warm and dry. Respiratory: Reports shortness of breath on exertion Breath sounds with wheezes bilaterally. Onset: The symptoms/episode began/occurred yesterday, the patient has mild shortness of breath. Derm: Skin is intact. Historical: - Allergies: 05:09 No Known Allergies; rv - PMHx: 05:09 chronic back pain; Diabetes - IDDM; Hypertension; Sleep Apnea; rv - PSHx: 05:09 Tonsillectomy; rv - Immunization history:: Adult Immunizations up to date. - Social history:: Smoking status: Patient reports the use of cigarette tobacco products, smokes one pack cigarettes per day. Screenin:10 Abuse screen: Denies threats or abuse. Denies injuries from another. Nutritional rv screening: No deficits noted. Tuberculosis screening: No symptoms or risk factors identified. Fall Risk None identified. Assessment: 05:10 Cardiovascular: Patient's skin is warm and dry. Rhythm is regular. Respiratory: Airway rv is patent Respiratory effort is even. 06:15 Reassessment: patient is in CT scan. rv Vital Signs: 05:06 BP 155 / 90; Pulse 78; Resp 20; Temp 98.5; Pulse Ox 93% on R/A; Weight 122.47 kg; rv Height 5 ft. 5 in. (165.10 cm); Pain 0/10; 05:30 BP 149 / 72; Pulse 73; Resp 17; Pulse Ox 93% on R/A; rv 06:00 BP 158 / 90; Pulse 75; Resp 19; Pulse Ox 94% on R/A; rv 07:20 BP 149 / 69; Pulse 72; Resp 18; Pulse Ox 95% on R/A; em 05:06 Body Mass Index 44.93 (122.47 kg, 165.10 cm) rv ED Course: 04:42 Patient arrived in ED. ag3 04:43 Frankie Back MD is Attending Physician. sybil 05:06 Rafal Gupta, RN is Primary Nurse. rv 05:09 Triage completed. rv 05:09 Arm band placed on Patient placed in the treatment room, on a stretcher, Patient rv notified of wait time. 05:10 Placed in gown. Bed in low position. Pulse ox on. NIBP on. rv 05:15 Inserted saline lock: 18 gauge in right forearm, using aseptic technique. Blood rv collected. 05:15 Initial lab(s) drawn, by tn, sent to lab. First set of blood cultures drawn by me. rv 05:33 XRAY Chest (1 view) In Process Unspecified. EDMS 05:38 Second set of blood cultures drawn by me. rv 06:50 CT Chest For PE Angio In Process Unspecified. EDMS 07:22 Familia Grady MD is Referral Physician. sybil 07:40 No provider procedures requiring assistance completed. IV discontinued, intact, em bleeding controlled, No redness/swelling at site. Pressure dressing applied. Administered Medications: 05:15 Drug: NS 0.9% 500 ml Route: IV; Rate: bolus; Site: right forearm; rv 05:45 Follow up: IV Status: Completed infusion; IV Intake: 500ml rv 05:45 Drug: NS 0.9% 1000 ml Route: IV; Rate: 125 ml/hr; Site: right forearm; rv 07:43 Follow up: IV Status: Order to discontinue infusion em 07:10 Not Given (Physician Discretion): Xopenex 2.5 mg Inhalation once em 07:10 Not Given (Physician Discretion): AtroVENT Aerosol 0.5 mg Inhalation once em Intake: 05:45 IV: 500ml; Total: 500ml. rv Outcome: 07:23 Discharge ordered by . [facility] 07:40 Discharged to home ambulatory. em 07:40 Condition: good 07:40 Discharge instructions given to patient, Instructed on discharge instructions, follow up and referral plans. medication usage, Demonstrated understanding of instructions, follow-up care, medications, Prescriptions given X 1. 07:43 Patient left the ED. em Signatures: Dispatcher [employer] Frankie Verde MD MD cha Munoz, Edgar RN RN Rafal Mann RN RN Rachel Hinkle 3
--- NOTE | 2020-01-13 07:29 | RAD REPORT ---
EXAM DESCRIPTION: Oswald Single View01/13/2020 5:33 am CLINICAL HISTORY: Cough COMPARISON: December 2019 FINDINGS: The lungs appear clear of acute infiltrate. The heart is mildly enlarged IMPRESSION: No acute abnormalities displayed
[2020-01-13 07:51] VITALS: TEMP 98.5
[2020-01-13 07:55] VITALS: BP 149/69; O2SAT 95
--- NOTE | 2020-01-14 07:23 | EKG ---
Test Date: 2020-01-13 Test Time: 05:22:17 Orthopaedic Doctor: STELLA MEASUREMENT RESULTS: Intervals: Rate: 75 MD: 156 QRSD: 92 QT: 390 QTc: 435 Essie: P: 5 MD: 156 QRS: 47 T: 21 INTERPRETIVE STATEMENTS: Normal sinus rhythm Normal ECG Compared to ECG 04/14/2019 09:37:08 No significant changes Electronically Signed On 01-14-20 07:22:09 CDT by Julio Mccall
== END 2020-01-13 07:43 | disposition home or self-care (01) ==
LOC: ER 04:39
DX: R06.00 Dyspnea, unspecified (principal); G47.33 Obstructive sleep apnea (adult) (pediatric); E66.9 Obesity, unspecified; Z68.41 Body mass index [BMI] 40.0-44.9, adult; R59.0 Localized enlarged lymph nodes
CPT/HCPCS: 93005; 87040 ×2; 85025; 80048; 36415; 83735; 85610; 80076; 84484; 83880; 71275; 71045; Q9967; J7030; 96360; 96361; 99284

== ENCOUNTER 2020-11-14 06:58 | Emergency (ER) | payer BC, SELFPAY ==
[2020-11-14 08:42] LABS: SARS-COV-2 RT PCR NEGATIVE (NEGATIVE)
--- NOTE | 2020-11-14 08:42 | RAD REPORT ---
EXAM DESCRIPTION: Oswald Single View11/14/2020 8:20 am CLINICAL HISTORY: Cough COMPARISON: 2019 FINDINGS: The lungs appear clear of acute infiltrate. The heart is borderline enlarged IMPRESSION: No acute abnormalities displayed
--- NOTE | 2020-11-14 09:04 | EDPHYS ---
Physician Documentation [facility] Name: Pascual Pearson Age: 45 yrs Sex: Male : 1975 Arrival Date: 11/14/2020 Time: 07:01 Bed 14 Private MD: ED Physician Christiano Roman HPI: 11/14 07:25 This 45 yrs old Male presents to ER via Ambulatory with complaints of Cough. kdr 07:25 The patient or guardian reports cough, that is intermittent, described as mild, with kdr productive sputum, that is green, difficulty breathing. Onset: The symptoms/episode began/occurred yesterday. Severity of symptoms: At their worst the symptoms were mild, just prior to arrival, in the emergency department the symptoms are unchanged. Modifying factors: The symptoms are alleviated by nothing, the symptoms are aggravated by cold weather. Associated signs and symptoms: Pertinent positives: chest pain, with cough, with movement, with breathing, sore throat, Pertinent negatives: diarrhea, ear ache, fever, nausea, vomiting. The patient has experienced similar episodes in the past, a few times. The patient has not recently seen a physician. has pneumonia yesterday. Historical: - Allergies: 07:09 No Known Allergies; aa5 - PMHx: 07:09 chronic back pain; Diabetes - IDDM; Hypertension; Sleep Apnea; Asthma; aa5 - PSHx: 07:09 Tonsillectomy; aa5 - Immunization history:: Flu vaccine is not up to date. - Social history:: Smoking status: Patient reports the use of cigarette tobacco products, smokes one-half pack cigarettes per day. ROS: 07:25 Constitutional: Negative for fever, chills, and weight loss, Eyes: Negative for injury, kdr pain, redness, and discharge, Neck: Negative for injury, pain, and swelling, Abdomen/GI: Negative for abdominal pain, nausea, vomiting, diarrhea, and constipation, Back: Negative for injury and pain, : Negative for injury, bleeding, discharge, and swelling, MS/Extremity: Negative for injury and deformity, Skin: Negative for injury, rash, and discoloration, Neuro: Negative for headache, weakness, numbness, tingling, and seizure activity. Psych: Negative for depression, anxiety, suicide ideation, homicidal ideation, and hallucinations, Allergy/Immunology: Negative for hives, rash, and allergies, Endocrine: Negative for neck swelling, polydipsia, polyuria, polyphagia, and marked weight changes, Hematologic/Lymphatic: Negative for swollen nodes, abnormal bleeding, and unusual bruising. 07:25 ENT: Positive for sore throat, Negative for ear pain, hearing loss, pulling at ears, difficulty handling secretions, hoarseness. 07:25 Cardiovascular: Positive for chest pain, with cough, Negative for edema, orthopnea, palpitations, paroxysmal nocturnal dyspnea. 07:25 Respiratory: Positive for cough, with green sputum, Negative for dyspnea on exertion, hemoptysis, orthopnea, pleurisy, shortness of breath, sputum production. Exam: 07:25 Constitutional: This is a well developed, well nourished patient who is awake, alert, kdr and in no acute distress. Head/Face: Normocephalic, atraumatic. Eyes: Pupils equal round and reactive to light, extra-ocular motions intact. Lids and lashes normal. Conjunctiva and sclera are non-icteric and not injected. Cornea within normal limits. Periorbital areas with no swelling, redness, or edema. Neck: Trachea midline, no thyromegaly or masses palpated, and no cervical lymphadenopathy. Supple, full range of motion without nuchal rigidity, or vertebral point tenderness. No Meningismus. Chest/axilla: Normal chest wall appearance and motion. Nontender with no deformity. No lesions are appreciated. Cardiovascular: Regular rate and rhythm with a normal S1 and S2. No gallops, murmurs, or rubs. Normal PMI, no JVD. No pulse deficits. Respiratory: Lungs have equal breath sounds bilaterally, clear to auscultation and percussion. No rales, rhonchi or wheezes noted. No increased work of breathing, no retractions or nasal flaring. Abdomen/GI: Soft, non-tender, with normal bowel sounds. No distension or tympany. No guarding or rebound. No evidence of tenderness throughout. Back: No spinal tenderness. No costovertebral tenderness. Full range of motion. Skin: Warm, dry with normal turgor. Normal color with no rashes, no lesions, and no evidence of cellulitis. MS/ Extremity: Pulses equal, no cyanosis. Neurovascular intact. Full, normal range of motion. Neuro: Awake and alert, GCS 15, oriented to person, place, time, and situation. Cranial nerves II-XII grossly intact. Motor strength 5/5 in all extremities. Sensory grossly intact. Cerebellar exam normal. Normal gait. Psych: Awake, alert, with orientation to person, place and time. Behavior, mood, and affect are within normal limits. Vital Signs: 07:09 BP 146 / 82; Pulse 110; Resp 20 S; Temp 99.1(O); Pulse Ox 98% on R/A; Weight 127.01 kg aa5 (R); Height 5 ft. 5 in. (165.10 cm) (R); Pain 8/10; 08:56 BP 149 / 97; Pulse 99; Resp 18 S; Temp 98.4(O); Pulse Ox 96% on R/A; dh3 07:09 Body Mass Index 46.60 (127.01 kg, 165.10 cm) aa5 MDM: 07:25 Data reviewed: vital signs, nurses notes, lab test result(s), radiologic studies. kdr Counseling: I had a detailed discussion with the patient and/or guardian regarding: the historical points, exam findings, and any diagnostic results supporting the discharge/admit diagnosis, lab results, radiology results, the need for outpatient follow up. 09:03 Patient medically screened. [facility] 11/14 07:25 Order name: Flu [facility] 11/14 07:25 Order name: Strep [facility] 11/14 07:25 Order name: COVID-19 : Document "Date of Symptom Onset" if Symptomatic. [facility] 11/14 07:26 Order name: Group A Streptococcus Rapid Sc; Complete Time: 08:30 [facility] 11/14 07:25 Order name: CXR XRAY; Complete Time: 09:00 [facility] 11/14 08:17 Order name: Throat Culture [facility] 11/14 08:42 Order name: COVID-19/FLU A+B; Complete Time: 09:00 ED[facility] Administered Medications: No medications were administered Disposition: 11/14/20 09:03 Discharged to Home. Impression: Acute upper respiratory infection, unspecified. - Condition is Stable. - Discharge Instructions: Upper Respiratory Infection, Adult. - Prescriptions for Tessalon Perles 100 mg Oral Capsule - take 1 capsule by ORAL route every 8 hours As needed; 15 capsule. Zithromax Z- Osbaldo 250 mg Oral Tablet - take 1 tablet by ORAL route as directed for 5 days Day 1 - take two (2) tablets one time. Day 2, 3, 4 , 5 take one (1) tablet once daily.; 6 tablet. Albuterol Sulfate 90 mcg/actuation Inhalation - inhale 1-2 puff by INHALATION route every 4-6 hours; 2 Inhaler. Promethazine VC- Codeine 6.25-5-10 mg/5 mL Oral syrup - take 5 milliliter by ORAL route every 4-6 hours as needed, not to exceed 30 mL in 24 hours; 200 milliliter. - Medication Reconciliation Form, Thank You Letter, Antibiotic Education, Work release form form. - Follow up: Private Physician; When: 2 - 3 days; Reason: If symptoms return, Further diagnostic work-up, Recheck today's complaints, Continuance of care, Re-evaluation by your physician. - Problem is new. - Symptoms have improved. Signatures: Dispatcher [employer] EDSC Christiano Roman MD MD kdr Nivia Knott RN RN aa5 Jonelle Carolina RN RN ph Corrections: (The following items were deleted from the chart) 07:56 07:26 CORONAVIRUS ordered. [facility] EDMS 07:57 07:26 Influenza Screen (A ordered. [facility] EDMS 09:15 09:03 11/14/2020 09:03 Discharged to Home. Impression: Acute upper respiratory ph infection, unspecified. Condition is Stable. Forms are Medication Reconciliation Form, Thank You Letter, Antibiotic Education, Prescription Opioid Use. Follow up: Private Physician; When: 2 - 3 days; Reason: If symptoms return, Further diagnostic work-up, Recheck today's complaints, Continuance of care, Re-evaluation by your physician. Problem is new. Symptoms have improved. kdr
--- NOTE | 2020-11-14 09:04 | ER ---
Nurse's Notes [facility] Name: Pascual Pearson Age: 45 yrs Sex: Male : 1975 Arrival Date: 11/14/2020 Time: 07:01 Bed 14 Private MD: Diagnosis: Acute upper respiratory infection, unspecified Presentation: 11/14 07:09 Chief complaint: Patient states: sore throat, body aches, productive cough, and chest aa5 congestion that began yesterday. Pt states "my is sick with Pneumonia but she doesn't have COVID-19". 07:09 Coronavirus screen: cough unrelated to allergies, muscle pain, sore throat, Client aa5 presents with at least one sign or symptom that may indicate coronavirus-19. Standard/surgical mask placed on the client. Provider contacted for isolation considerations. Ebola Screen: Patient negative for fever greater than or equal to 101.5 degrees Fahrenheit, and additional compatible Ebola Virus Disease symptoms. Initial Sepsis Screen: Does the patient meet any 2 criteria? HR > 90 bpm. Does the patient have a suspected source of infection? Yes: Productive cough/pneumonia. Risk Assessment: Do you want to hurt yourself or someone else? Patient reports no desire to harm self or others. Onset of symptoms was November 2020. 07:09 Method Of Arrival: Ambulatory aa5 07:09 Acuity: EVERT 3 aa5 Historical: - Allergies: 07:09 No Known Allergies; aa5 - PMHx: 07:09 chronic back pain; Diabetes - IDDM; Hypertension; Sleep Apnea; Asthma; aa5 - PSHx: 07:09 Tonsillectomy; aa5 - Immunization history:: Flu vaccine is not up to date. - Social history:: Smoking status: Patient reports the use of cigarette tobacco products, smokes one-half pack cigarettes per day. Screenin:15 Abuse screen: Denies threats or abuse. Nutritional screening: No deficits noted. aa5 Tuberculosis screening: No symptoms or risk factors identified. Fall Risk None identified. Assessment: 07:10 General: Appears comfortable, Behavior is calm, cooperative. Pain: Complains of pain in aa5 whole body and throat Pain currently is 8 out of 10 on a pain scale. Quality of pain is described as aching, Pain began 1 day ago. Is continuous. Neuro: Level of Consciousness is awake, alert, obeys commands, Oriented to person, place, time, situation. Cardiovascular: Heart tones S1 S2 present Rhythm is regular. Respiratory: Reports cough that is productive, reports whitish to greenish sputum Airway is patent Respiratory effort is even, unlabored, Respiratory pattern is regular, symmetrical, Breath sounds are clear bilaterally. Denies labored breathing. GI: Abdomen is obese. : No signs and/or symptoms were reported regarding the genitourinary system. EENT: Throat is reddened Reports pain to throat . Derm: Skin is pink, warm \\T\\ dry. Musculoskeletal: Range of motion: intact in all extremities. 08:53 Reassessment: Pt resting in bed with eyes closed, respirations even and unlabored, skin aa5 is pink/warm/dry. Awaiting disposition. . Vital Signs: 07:09 BP 146 / 82; Pulse 110; Resp 20 S; Temp 99.1(O); Pulse Ox 98% on R/A; Weight 127.01 kg aa5 (R); Height 5 ft. 5 in. (165.10 cm) (R); Pain 8/10; 08:56 BP 149 / 97; Pulse 99; Resp 18 S; Temp 98.4(O); Pulse Ox 96% on R/A; dh3 07:09 Body Mass Index 46.60 (127.01 kg, 165.10 cm) aa5 ED Course: 07:01 Patient arrived in ED. ag3 07:09 Arm band placed on. aa5 07:09 Patient has correct armband on for positive identification. Bed in low position. Call aa5 light in reach. Side rails up X 1. 07:11 Triage completed. aa5 07:12 Nivia Knott, KAMERON is Primary Nurse. aa5 07:17 Christiano Roman MD is Attending Physician. kdr 07:45 COVID swab sent to lab. Flu and/or RSV swab sent to lab. Strep swab sent to lab. aa5 08:19 CXR XRAY In Process Unspecified. EDMS 09:15 No provider procedures requiring assistance completed. Patient did not have IV access ph during this emergency room visit. Administered Medications: No medications were administered Outcome: 09:03 Discharge ordered by . kdr 09:15 Discharged to home ambulatory. ph 09:15 Condition: good 09:15 Discharge instructions given to patient, Instructed on discharge instructions, follow up and referral plans. medication usage, Demonstrated understanding of instructions, follow-up care, medications, Prescriptions given X 4. 09:15 Patient left the ED. ph Signatures: Dispatcher [employer] EDMS Christiano Roman MD MD [facility] Nivia Knott RN RN aa5 Jonelle Carolina RN RN Blayne, Anita 3 Rachel Hinkle 3 Corrections: (The following items were deleted from the chart) 07:12 07:09 BP 146 / 82; Pulse 110bpm; Resp 20bpm; Spontaneous; Pulse Ox 98% RA; Temp 99.1F aa5 Oral; 127.01 kg Reported; Height 5 ft. 5 in. Reported; BMI: 46.5; aa5
[2020-11-14 09:21] VITALS: BP 149/97; TEMP 98.4; O2SAT 96
== END 2020-11-14 09:15 | disposition home or self-care (01) ==
LOC: ER 06:58
DX: J06.9 Acute upper respiratory infection, unspecified (principal); Z20.822 Contact with and (suspected) exposure to COVID-19; I10 Essential (primary) hypertension; F17.210 Nicotine dependence, cigarettes, uncomplicated
CPT/HCPCS: 0240U; 71045; 87070; 87081; 99283

== ENCOUNTER 2020-11-18 14:00 | Emergency (ER) | payer SELFPAY ==
--- NOTE | 2020-11-18 16:46 | ER ---
Nurse's Notes [facility] Name: Pascual Pearson Age: 45 yrs Sex: Male : 1975 Arrival Date: 11/18/2020 Time: 14:09 Bed Waiting Private MD: Diagnosis: Presentation: 11/18 14:09 Chief complaint: Patient states: "shortness of breath X 1 week. come up Tuesday and was jd3 sent home and I just got worse yesterday. shortness of breath, cough, low 02 %.". Coronavirus screen: cough unrelated to allergies, difficulty breathing. Ebola Screen: Patient negative for fever greater than or equal to 101.5 degrees Fahrenheit, and additional compatible Ebola Virus Disease symptoms. Initial Sepsis Screen: Does the patient meet any 2 criteria? No. Patient's initial sepsis screen is negative. Does the patient have a suspected source of infection? No. Patient's initial sepsis screen is negative. Risk Assessment: Do you want to hurt yourself or someone else? Patient reports no desire to harm self or others. Onset of symptoms was November 17, 2020. 14:09 Method Of Arrival: Wheelchair jd3 14:09 Acuity: EVERT 2 jd3 Historical: - Allergies: 14:13 No Known Allergies; jd3 - PMHx: 14:13 Diabetes - IDDM; chronic back pain; Sleep Apnea; Hypertension; Asthma; jd3 - PSHx: 14:13 Tonsillectomy; right foot; jd3 - Immunization history:: Adult Immunizations up to date. - Social history:: Smoking status: Patient reports the use of cigarette tobacco products, smokes one pack cigarettes per day. Vital Signs: 14:11 BP 156 / 81; Pulse 90; Resp 20 S; Temp 97.5(TE); Pulse Ox 88% on R/A; Weight 127.01 kg jd3 (R); Height 5 ft. 5 in. (165.10 cm) (R); Pain 10/10; 14:11 Pulse Ox 94% on 2 lpm NC; jd3 14:11 Body Mass Index 46.59 (127.01 kg, 165.10 cm) jd3 ED Course: 14:09 Patient arrived in ED. ds1 14:11 Triage completed. jd3 14:12 Arm band placed on. jd3 Administered Medications: No medications were administered Outcome: 16:45 Patient left the ED. jd3 Signatures: Amy Smith ds1 Papito Gil, KAMERON RN jd3
[2020-11-18 16:49] VITALS: BP 156/81; TEMP 97.5; O2SAT 88
== END 2020-11-18 16:45 | disposition left against medical advice (07) ==
LOC: ER 14:00
DX: R06.02 Shortness of breath (principal); Z53.21 Procedure and treatment not carried out due to patient leaving prior to being seen by health care provider; F17.210 Nicotine dependence, cigarettes, uncomplicated; E11.9 Type 2 diabetes mellitus without complications; Z79.4 Long term (current) use of insulin; M54.9 Dorsalgia, unspecified; G89.29 Other chronic pain; G47.30 Sleep apnea, unspecified; J45.909 Unspecified asthma, uncomplicated; I10 Essential (primary) hypertension
CPT/HCPCS: 99281

== ENCOUNTER 2021-04-12 04:14 | Emergency (ER) | payer SELFPAY ==
[2021-04-12 04:42] LABS: Absolute Lymphocytes (CBC) 2.4 K/uL (0.7-4.9); Basophils % 0.5 % (0-1.3); Hematocrit 41.1 % (39.6-49.0); Lymphocytes % 37.5 % (15.3-44.8); MPV 8.8 fL (7.6-11.3); RBC Red Blood Cell Count 4.39 M/uL (4.33-5.43)
[2021-04-12 04:43] LABS: Protime INR 0.89
[2021-04-12 05:03] LABS: ALT/SGPT 85 U/L (12-78); AST/SGOT 54 U/L (15-37); Albumin 3.1 g/dL (3.4-5.0); Alkaline Phosphatase 127 U/L (45-117); BUN Blood Urea Nitrogen 16 mg/dL (7-18); Bicarbonate 29 mmol/L (21-32); Bilirubin Direct < 0.1 mg/dL (0-0.2); Bilirubin Total 0.3 mg/dL (0.2-1.0); Glucose Level 271 mg/dL (74-106); Magnesium 1.9 mg/dL (1.8-2.4); NT PRO-BNP 43 pg/mL (<125); Potassium 3.9 mmol/L (3.5-5.1); Protein, Total 6.7 g/dL (6.4-8.2); Sodium Level 138 mmol/L (136-145); Troponin (Emerg Dept Use Only) < 0.02 ng/mL (0.0-0.045)
[2021-04-12] MEDS ORDERED: MORPHINE 4 MG/ML SYR ONE (06:39)
[2021-04-12] MEDS ORDERED: ONDANSETRON 4 MG/2 ML VIAL ONE (06:39)
[2021-04-12 07:40] LABS: Urine Blood Negative (Negative); Urine Glucose 3+ (Negative); Urine Protein 1+ (Negative); Urine Specific Gravity >=1.030 (1.005-1.030)
--- NOTE | 2021-04-12 08:13 | RAD REPORT ---
EXAM DESCRIPTION: CT - Chest For Pe Angio - 04/12/2021 8:00 am CLINICAL HISTORY: Chest pain COMPARISON: 2019 TECHNIQUE: Dynamically enhanced axial 3 mm thick images of the chest were obtained during administra tion of <100> mL Isovue 370 IV contrast. Coronal and oblique reconstruction images were generated and reviewed. Exam utilizes a protocol for optimal evaluation of pulmonary arterial tree. Maximum intensity projections 3D imaging was utilized All CT scans are performed using dose optimization technique as appropriate and may include automated exposure control or mA/KV adjustment according to patient size. FINDINGS: A pulmonary embolus is not seen. A thoracic aortic aneurysm is not noted. A pleural effusion is not seen. A pericardial effusion is not seen. A lung consolidation is not present. Mild mediastinal lymphadenopathy is significant change. Heart is mildly to moderately enlarged IMPRESSION: Negative for a pulmonary embolism.
--- NOTE | 2021-04-12 08:17 | RAD REPORT ---
EXAM DESCRIPTION: CT - Abdomen Pelvis W Contrast - 04/12/2021 8:01 am CLINICAL HISTORY: Abdominal pain COMPARISON: none. TECHNIQUE: Computed axial tomography of the abdomen pelvis was obtained. 100 cc Isovue-300 was admin istered intravenously. Oral contrast was not requested which limits evaluation of bowel. All CT scans are performed using dose optimization technique as appropriate and may include automated exposure control or mA/KV adjustment according to patient size. FINDINGS: The liver is mildly enlarged. Fatty infiltration. Spleen, pancreas, adrenal and kidneys appear unremarkable. There is no evidence of diverticulitis. Normal appendix. Small bilateral inguinal hernias. Small umbilical hernia IMPRESSION: Mild hepatomegaly with infiltration
--- NOTE | 2021-04-12 08:52 | RAD REPORT ---
EXAM DESCRIPTION: [facility]ald Single View04/12/2021 5:01 am CLINICAL HISTORY: Chest pain COMPARISON: November 2020 FINDINGS: The lungs appear clear of acute infiltrate. The heart is mildly to moderately enlarged IMPRESSION: No acute abnormalities displayed
--- NOTE | 2021-04-12 09:02 | ER ---
Nurse's Notes [facility] Name: Pascual Pearson Age: 45 yrs Sex: Male : 1975 Arrival Date: 04/12/2021 Time: 04:21 Bed 17 Private MD: Diagnosis: Dyspnea, unspecified Presentation: 04/12 04:20 Chief complaint: EMS states: patient woke up around 10 PM sudden SOB, back pain, and rr5 off and on chest pressure. history of COPD 86% RA hooked to O2 went up to 95%. 04:20 Coronavirus screen: Client denies travel out of the [place] in the last 14 days. Ebola rr5 Screen: Patient negative for fever greater than or equal to 101.5 degrees Fahrenheit, and additional compatible Ebola Virus Disease symptoms Patient denies exposure to infectious person. Patient denies travel to an Ebola-affected area in the 21 days before illness onset. Initial Sepsis Screen: Does the patient meet any 2 criteria? No. Patient's initial sepsis screen is negative. Does the patient have a suspected source of infection? No. Patient's initial sepsis screen is negative. Risk Assessment: Do you want to hurt yourself or someone else? Patient reports no desire to harm self or others. Onset of symptoms was April 11, 2021. Care prior to arrival: Medication(s) given: ASA, 325 mg, Nitroglycerin, 0.4 mg SL IV initiated. 18 GA, in the right hand. 04:20 Method Of Arrival: EMS: [facility] rr5 04:20 Acuity: EVERT 3 rr5 Historical: - Allergies: 04:25 No Known Allergies; rr5 - Home Meds: 04:25 Clonazepam Oral [Active]; Fluoxetine Oral [Active]; rr5 - PMHx: 04:25 Asthma; chronic back pain; Diabetes - IDDM; Hypertension; Sleep Apnea; rr5 - Immunization history:: Adult Immunizations up to date. - Social history:: Smoking status: Patient reports the use of cigarette tobacco products, 10 sticks/day. Screenin:30 Abuse screen: Denies threats or abuse. Denies injuries from another. Nutritional rr5 screening: No deficits noted. Tuberculosis screening: No symptoms or risk factors identified. Fall Risk IV access (20 points). Total Mcgregor Fall Scale indicates No Risk (0-24 pts). Assessment: 04:30 General: Appears in no apparent distress. comfortable, Behavior is calm, cooperative, rr5 appropriate for age. Pain: Complains of pain in chest Pain does not radiate. Pain currently is 5 out of 10 on a pain scale. Quality of pain is described as pressure, Pain began suddenly, Is intermittent. Neuro: Level of Consciousness is awake, alert, obeys commands, Oriented to person, place, time. Cardiovascular: Reports chest pain, Capillary refill < 3 seconds Patient's skin is warm and dry. Respiratory: Reports shortness of breath Airway is patent. GI: No signs and/or symptoms were reported involving the gastrointestinal system. : No signs and/or symptoms were reported regarding the genitourinary system. EENT: No signs and/or symptoms were reported regarding the EENT system. Derm: Skin temperature is warm. Musculoskeletal: Capillary refill < 3 seconds. 05:14 Reassessment: Patient appears in no apparent distress at this time. Patient is alert, rr5 oriented x 3, equal unlabored respirations, skin warm/dry/pink. awaiting for evaluation. 06:32 Reassessment: Patient and/or family updated on plan of care and expected duration. Pain ak2 level reassessed. 07:00 General: Appears in no apparent distress. comfortable, Behavior is calm, cooperative. rb3 Pain: Complains of pain in chest Pain currently is 3 out of 10 on a pain scale. Quality of pain is described as pressure. Neuro: Level of Consciousness is awake, alert, obeys commands, Oriented to person, place, time, situation. Cardiovascular: Patient's skin is warm and dry. Respiratory: Airway is patent Respiratory effort is even, unlabored, Respiratory pattern is regular, symmetrical, 2 L NC O2 sat 93. 08:00 Reassessment: Patient appears in no apparent distress at this time. No changes from rb3 previously documented assessment. 08:58 Reassessment: Patient appears in no apparent distress at this time. Patient and/or rb3 family updated on plan of care and expected duration. Pain level reassessed. Patient is alert, oriented x 3, equal unlabored respirations, skin warm/dry/pink. Vital Signs: 04:20 BP 132 / 68; Pulse 85; Resp 20; Temp 98; Pulse Ox 93% on 5 lpm NC; Weight 131.54 kg; rr5 Pain 5/10; 04:34 Pulse Ox 93% on 2 lpm NC; rr5 05:14 BP 145 / 81; Pulse 81; Resp 19; Pulse Ox 95% on 2 lpm NC; rr5 06:33 BP 127 / 73; Pulse 77; Resp 20; Pulse Ox 98% ; ak2 07:30 BP 168 / 84; Pulse 86; Resp 19; Pulse Ox 93% on 2 lpm NC; rb3 08:28 BP 156 / 75; Pulse 79; Resp 19; Pulse Ox 94% on 2 lpm NC; Pain 3/10; rb3 09:37 BP 151 / 81; Pulse 78; Resp 20; Pulse Ox 94% on 2 lpm NC; rb3 ED Course: 04:21 Patient arrived in ED. rr5 04:25 Triage completed. rr5 04:26 Arm band placed on left wrist. rr5 04:26 Maintain EMS IV. Dressing intact. Good blood return noted. Site clean \T\ dry. Gauge \T\ rr 5 site: g18 right hand. 04:29 Aakash Butler RN is Primary Nurse. rr5 04:33 Patient has correct armband on for positive identification. Bed in low position. Call rr5 light in reach. Side rails up X2. monitoring and evaluation advisor on. Pulse ox on. NIBP on. 05:00 XRAY Chest (1 view) In Process Unspecified. EDMS 05:09 Gera Warner MD is Attending Physician. [facility] 05:15 No provider procedures requiring assistance completed. Patient maintains SpO2 rr5 saturation greater than 95% on room air. 08:00 CT Chest For PE Angio In Process Unspecified. EDMS 08:00 CT Abd/Pelvis - IV Contrast Only In Process Unspecified. EDMS 09:38 IV discontinued, intact, bleeding controlled, No redness/swelling at site. Pressure rb3 dressing applied. Administered Medications: 06:20 Drug: Zofran (Ondansetron) 4 mg Route: IVP; Site: right hand; rr5 07:07 Follow up: Response: No adverse reaction rr5 06:22 Drug: morphine 4 mg {Note: rass 0.} Route: IVP; Site: right hand; rr5 07:07 Follow up: Response: No adverse reaction; RASS: Alert and Calm (0) rr5 Outcome: 09:01 Discharge ordered by . tw4 09:38 Discharged to home ambulatory. rb3 09:38 Condition: stable 09:38 Discharge instructions given to patient, Instructed on discharge instructions, follow up and referral plans. medication usage, Demonstrated understanding of instructions, follow-up care, medications, Prescriptions given X 1. 09:38 Patient left the ED. rb3 Signatures: Dispatcher [employer] EDOsbaldo Iqbal MD MD tw4 Aakash Butler RN RN rr5 Gera Warner MD MD mh7 Fernanda Riggins, RN RN rb3 Gene Saavedra2
--- NOTE | 2021-04-12 09:02 | EDPHYS ---
Physician Documentation [facility] Name: Pascual Pearson Age: 45 yrs Sex: Male : 1975 Arrival Date: 04/12/2021 Time: 04:21 Bed 17 Private MD: ED Physician Gera Warner HPI: 04/12 06:37 This 45 yrs old Male presents to ER via EMS with complaints of Shortness of mh7 Breath. 06:38 The patient has shortness of breath at rest, with light activity. Onset: The mh7 symptoms/episode began/occurred last night. Duration: The symptoms are intermittent, with no pattern. The patient's shortness of breath is aggravated by exertion, light activity, is alleviated by nothing. Associated signs and symptoms: Pertinent positives: chest pain, non-productive cough, Pertinent negatives: productive cough, diaphoresis, dizziness, fever, hemoptysis, loss of consciousness, nausea, numbness in extremities, visual changes, vomiting. Severity of symptoms: At their worst the symptoms were moderate last night, in the emergency department the symptoms have improved moderately. Historical: - Allergies: 04:25 No Known Allergies; rr5 - Home Meds: 04:25 Clonazepam Oral [Active]; Fluoxetine Oral [Active]; rr5 - PMHx: 04:25 Asthma; chronic back pain; Diabetes - IDDM; Hypertension; Sleep Apnea; rr5 - Immunization history:: Adult Immunizations up to date. - Social history:: Smoking status: Patient reports the use of cigarette tobacco products, 10 sticks/day. ROS: 06:39 Constitutional: Negative for fever, chills, and weight loss, Eyes: Negative for injury, mh7 pain, redness, and discharge, ENT: Negative for injury, pain, and discharge, Neck: Negative for injury, pain, and swelling. 06:39 : Negative for injury, bleeding, discharge, and swelling, MS/Extremity: Negative for injury and deformity, Skin: Negative for injury, rash, and discoloration, Neuro: Negative for headache, weakness, numbness, tingling, and seizure, Psych: Negative for depression, anxiety, suicide ideation, homicidal ideation, and hallucinations, Allergy/Immunology: Negative for hives, rash, and allergies, Endocrine: Negative for neck swelling, polydipsia, polyuria, polyphagia, and marked weight changes, Hematologic/Lymphatic: Negative for swollen nodes, abnormal bleeding, and unusual bruising. 06:39 Abdomen/GI: Positive for abdominal pain, Negative for nausea and vomiting, nausea, vomiting, and diarrhea, nausea, vomiting, diarrhea, constipation, abdominal cramps, abdominal distension, anorexia, dysphagia, hematemesis, black/tarry stool, rectal pain, rectal bleeding, bowel incontinence, flatulence. 06:39 Back: Positive for flank pain, on the left. Exam: 06:39 Constitutional: This is a well developed, well nourished patient who is awake, alert, mh7 and in no acute distress. Head/Face: Normocephalic, atraumatic. Eyes: Pupils equal round and reactive to light, extra-ocular motions intact. Lids and lashes normal. Conjunctiva and sclera are non-icteric and not injected. Cornea within normal limits. Periorbital areas with no swelling, redness, or edema. Neck: Trachea midline, no thyromegaly or masses palpated, and no cervical lymphadenopathy. Supple, full range of motion without nuchal rigidity, or vertebral point tenderness. No Meningismus. Chest/axilla: Normal chest wall appearance and motion. Nontender with no deformity. No lesions are appreciated. Cardiovascular: Regular rate and rhythm with a normal S1 and S2. No gallops, murmurs, or rubs. Normal PMI, no JVD. No pulse deficits. Respiratory: Lungs have equal breath sounds bilaterally, clear to auscultation and percussion. No rales, rhonchi or wheezes noted. No increased work of breathing, no retractions or nasal flaring. 06:39 Skin: Warm, dry with normal turgor. Normal color with no rashes, no lesions, and no evidence of cellulitis. MS/ Extremity: Pulses equal, no cyanosis. Neurovascular intact. Full, normal range of motion. Neuro: Awake and alert, GCS 15, oriented to person, place, time, and situation. Cranial nerves II-XII grossly intact. Motor strength 5/5 in all extremities. Sensory grossly intact. Cerebellar exam normal. Normal gait. Psych: Awake, alert, with orientation to person, place and time. Behavior, mood, and affect are within normal limits. 06:39 Abdomen/GI: Inspection: obese Bowel sounds: normal, in all quadrants, Palpation: moderate abdominal tenderness, in the left lower quadrant, mass, is not appreciated, rebound tenderness, is not appreciated, voluntary guarding, is not appreciated, involuntary guarding, is not appreciated, no appreciated organomegaly, Rectal exam: the exam is deferred, because of patient request, Indicators: McBurney's point is not tender, May's sign is negative, Rovsing's sign is negative, Obturator sign is negative, Psoas sign is negative, Liver: no appreciated palpable abnormalities, Hernia: not appreciated. 06:39 Back: normal spinal alignment noted, CVA tenderness, that is mild, is noted on the left, vertebral tenderness, is not appreciated, muscle spasm, is not present. Vital Signs: 04:20 BP 132 / 68; Pulse 85; Resp 20; Temp 98; Pulse Ox 93% on 5 lpm NC; Weight 131.54 kg; rr5 Pain 5/10; 04:34 Pulse Ox 93% on 2 lpm NC; rr5 05:14 BP 145 / 81; Pulse 81; Resp 19; Pulse Ox 95% on 2 lpm NC; rr5 06:33 BP 127 / 73; Pulse 77; Resp 20; Pulse Ox 98% ; ak2 07:30 BP 168 / 84; Pulse 86; Resp 19; Pulse Ox 93% on 2 lpm NC; rb3 08:28 BP 156 / 75; Pulse 79; Resp 19; Pulse Ox 94% on 2 lpm NC; Pain 3/10; rb3 09:37 BP 151 / 81; Pulse 78; Resp 20; Pulse Ox 94% on 2 lpm NC; rb3 MDM: 07:25 Transition of care: After a detail discussion of the patient's case, care is mh7 transferred to Osbaldo Perez MD. 09:01 Patient medically screened. tw4 09:02 Data reviewed: vital signs, nurses notes, lab test result(s), CBC, electrolytes, tw4 radiologic studies, CT scan. 04/12 04:21 Order name: Basic Metabolic Panel; Complete Time: 06:10 rr5 04/12 04:21 Order name: CBC with Diff; Complete Time: 06:10 5 04/12 04:21 Order name: LFT's; Complete Time: 06:10 5 04/12 04:21 Order name: Magnesium; Complete Time: 06:10 5 04/12 04:21 Order name: NT PRO-BNP; Complete Time: 06:10 5 04/12 04:21 Order name: PT-INR; Complete Time: 06:10 04/12 04:21 Order name: Troponin (emerg Dept Use Only); Complete Time: 06:10 04/12 04:21 Order name: XRAY Chest (1 view) [facility] 04/12 04:21 Order name: EKG; Complete Time: 04:22 5 04/12 06:53 Order name: CT Chest For PE Angio; Complete Time: 08:59 7 04/12 06:53 Order name: CT Abd/Pelvis - IV Contrast Only; Complete Time: 08:59 7 04/12 07:39 Order name: Urine Dipstick-Ancillary [facility] [place] 04/12 04:21 Order name: Cardiac monitoring; Complete Time: 04:29 04/12 04:21 Order name: EKG - Nurse/Tech; Complete Time: 04:30 04/12 04:21 Order name: IV Saline Lock; Complete Time: 04:30 04/12 04:21 Order name: Labs collected and sent; Complete Time: 04:30 04/12 04:21 Order name: O2 Per Protocol; Complete Time: 04:30 04/12 04:21 Order name: O2 Sat Monitoring; Complete Time: 04:30 04/12 06:11 Order name: Urine Dipstick-Ancillary (obtain specimen); Complete Time: 08:16 mh7 Administered Medications: 06:20 Drug: Zofran (Ondansetron) 4 mg Route: IVP; Site: right hand; rr5 07:07 Follow up: Response: No adverse reaction rr5 06:22 Drug: morphine 4 mg {Note: rass 0.} Route: IVP; Site: right hand; rr5 07:07 Follow up: Response: No adverse reaction; RASS: Alert and Calm (0) rr5 Disposition Summary: 04/12/21 09:01 Discharge Ordered Location: Home tw4 Problem: new tw4 Symptoms: have improved tw4 Condition: Stable tw4 Diagnosis - Dyspnea, unspecified tw4 Followup: tw4 - With: Private Physician - When: Upon discharge from the Emergency Department - Reason: Recheck today's complaints, Continuance of care, Re-evaluation by your physician Discharge Instructions: - Discharge Summary Sheet tw4 - Pain Without a Known Cause tw4 - Shortness of Breath, Adult tw4 Forms: - Medication Reconciliation Form tw4 - Thank You Letter tw4 - Antibiotic Education tw4 - Prescription Opioid Use tw4 Prescriptions: - Ibuprofen 600 mg Oral Tablet - take 1 tablet by ORAL route every 6 hours As needed take with food; 30 tablet; tw4 Refills: 0, Product Selection Permitted Signatures: Dispatcher [employer] Osbaldo Gardner MD MD 4 Aakash Butler RN RN rr5 Gera Warner MD MD 7 Corrections: (The following items were deleted from the chart) 09:02 09:01 Chest pain, unspecified tw4 tw4
[2021-04-12 09:44] VITALS: TEMP 98
[2021-04-12 09:52] VITALS: O2SAT 94
[2021-04-12 09:54] VITALS: BP 151/81
--- NOTE | 2021-04-13 16:10 | EKG ---
Test Date: 2021-04-12 Test Time: 04:11:12 [place] Warm Up: RR MEASUREMENT RESULTS: Intervals: Rate: 81 ME: 174 QRSD: 98 QT: 388 QTc: 450 [place]: P: 63 ME: 174 QRS: 47 T: 42 INTERPRETIVE STATEMENTS: Normal sinus rhythm Normal ECG Compared to ECG 01/13/2020 05:22:17 No significant changes Electronically Signed On 04-13-21 16:04:35 CDT by Julio Mccall
== END 2021-04-12 09:38 | disposition home or self-care (01) ==
LOC: ER 04:14
DX: R06.00 Dyspnea, unspecified (principal); G89.29 Other chronic pain; I10 Essential (primary) hypertension; F17.210 Nicotine dependence, cigarettes, uncomplicated
CPT/HCPCS: 36415; 71045; 71275; 74177; 80048; 80076; 81003; 83735; 83880; 84484; 85025; 85610; 93005; 96374; 96375; 99285; J2405; Q9967

== ENCOUNTER 2022-02-05 04:20 | Emergency (ER) | payer BC, SELFPAY ==
--- NOTE | 2022-02-05 04:50 | EDPHYS ---
Physician Documentation [facility] Name: Pascual Pearson Age: 46 yrs Sex: Male : 1975 Arrival Date: 02/05/2022 Time: 04:26 Bed 4 Private MD: ED Physician Christiano Roman HPI: 02/05 05:00 This 46 yrs old Male presents to ER via Unassigned with complaints of Toe Pain.kdr 05:00 The patient presents with pain, that is chronic, tenderness, Desquamation of the kdr interdigital space between the 4/5 toes bilaterally with the right worse than the left. The complaints affect the left foot, right foot. Context: The problem was sustained at home, resulted from an unknown cause, Mechanism of Injury: the patient can fully bear weight, the patient is able to ambulate, without difficulty. Onset: The symptoms/episode began/occurred at an unknown time. and became worse yesterday, This has been a chronic condition for which he yoko sought many remedies without success. he was recently at [place] for the same complaint but he was discharged with a diagnosis of a diabetic foot uler. Modifying factors: The symptoms are alleviated by nothing, the symptoms are aggravated by weight bearing, heat, movement, wearing shoes. Associated signs and symptoms: The patient has no apparent associated signs or symptoms. Severity of symptoms: At their worst the symptoms were mild, in the emergency department the symptoms are unchanged. The patient has experienced similar episodes in the past, chronically. The patient has not recently seen a physician. Historical: - Allergies: 05:07 No Known Allergies; ll3 ROS: 05:00 MS/extremity: Positive for pain, swelling, tenderness, warmth, of the left foot. kdr 05:00 Constitutional: Negative for fever, chills, and weight loss, Eyes: Negative for injury, pain, redness, and discharge. Exam: 05:00 Constitutional: This is a well developed, well nourished patient who is awake, alert, kdr and in no acute distress. 05:00 Musculoskeletal/extremity: Feet have dime sized areas where the skin has Moff/discriminated between the fourth and fifth digits. This is been a longstanding problem for which the patient has attempted many remedies without success. Is been given the or podiatry. The patient does not appear in any acute distress or toxic with a threat to life or limb at this time. Vital Signs: 05:04 BP 141 / 73; Pulse 86; Resp 18; Temp 97.9(O); Pulse Ox 100% ; ll3 MDM: 04:49 Patient medically screened. kdr 05:07 Data reviewed: vital signs, nurses notes, old medical records. kdr Administered Medications: No medications were administered Disposition Summary: 02/05/22 04:49 Discharge Ordered Location: Home kdr Problem: an ongoing problem kdr Symptoms: have improved kdr Condition: Stable kdr Diagnosis - Intradigit Desquamation: Fungal Infection - foot 4/5 toes kdr Followup: kdr - With: Private Physician - When: 1 - 2 days - Reason: If symptoms return, Further diagnostic work-up, Recheck today's complaints, Continuance of care, Re-evaluation by your physician Discharge Instructions: - Discharge Summary Sheet kdr - Diabetes Mellitus and Foot Care kdr - Foot Care, Adult kdr - Form - Return To Work tw5 Forms: - Medication Reconciliation Form kdr - Thank You Letter kdr Prescriptions: - Clotrimazole 1 % Topical Cream - Apply to affected area 1 application by TOPICAL route every 12 hours Make sure kdr to use a very scant amount; 15 gram; Refills: 0, Product Selection Permitted Signatures: Christiano Roman MD MD kdr Gulshan Fitch, RN RN ll3
--- NOTE | 2022-02-05 05:11 | ER ---
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 Coronavirus screen: At this time, the client does not indicate any symptoms associated with coronavirus-19. Ebola Screen: No symptoms or risks identified at this time. Initial Sepsis Screen: Does the patient meet any 2 criteria? No. Patient's initial sepsis screen is negative. Does the patient have a suspected source of infection? No. Patient's initial sepsis screen is negative. Risk Assessment: Do you want to hurt yourself or someone else? Patient reports no desire to harm self or others. Onset of symptoms is unknown. 05:04 Method Of Arrival: Ambulatory ll3 05:04 Acuity: EVERT 5 ll3 Triage Assessment: 05:07 General: Appears comfortable, Behavior is calm, cooperative. Pain: Complains of pain in ll3 right foot and left foot. Derm: Skin is moist, Skin is pink, Wound noted right foot and plantar aspect of left fifth toe Reports pain. Historical: - Allergies: 05:07 No Known Allergies; ll3 Screenin:09 Abuse screen: Denies threats or abuse. Nutritional screening: No deficits noted. ll3 Tuberculosis screening: No symptoms or risk factors identified. Fall Risk None identified. Vital Signs: 05:04 BP 141 / 73; Pulse 86; Resp 18; Temp 97.9(O); Pulse Ox 100% ; ll3 ED Course: :26 Patient arrived in ED. bp1 04:29 Christiano Roman MD is Attending Physician. kdr 05:04 Gulshan Fitch RN is Primary Nurse. ll3 05:07 Triage completed. ll3 05:07 Arm band placed on Patient placed in an exam room, on a stretcher, on pulse oximetry. ll3 Bandage applied. 05:09 Patient has correct armband on for positive identification. Call light in reach. Side ll3 rails up X 1. 05:09 No provider procedures requiring assistance completed. Patient did not have IV access ll3 during this emergency room visit. Administered Medications: No medications were administered Outcome: 04:49 Discharge ordered by . kdr 05:09 Discharged to home ambulatory. ll3 05:09 Condition: stable 05:09 Discharge instructions given to patient, Instructed on discharge instructions, follow up and referral plans. medication usage, Demonstrated understanding of instructions, follow-up care, medications, Prescriptions given X 1. 05:10 Patient left the ED. ll3 Signatures: Christiano Roman MD MD kdr [place], Brittany bp1 Loubet, Lynsea, RN RN ll3
[2022-02-05 05:15] VITALS: BP 141/73; TEMP 97.9; O2SAT 100
== END 2022-02-05 05:10 | disposition home or self-care (01) ==
LOC: ER 04:20
DX: B35.3 Tinea pedis (principal)
CPT/HCPCS: 99283